=== PATIENT | male | born 1985 | race Caucasian/White ===

== ENCOUNTER 2024-11-14 10:09 | Outpatient (AMB) | payer MEDICAID, SELFPAY ==
--- NOTE | 2024-11-14 10:14 | A.OFFVIS_ITS ---
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 States this was a incidental finding after complaining about abdominal pain. 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 He has a prior history of abdominal discomfort that began about a year ago. He describes periods of abdominal bloating discomfort and generalized pain. Denies any significant food fear. Upon discussion with him he actually reports that his weight is up and to the highest it has ever been at 210 lb. He does not note any severe abdominal pain. Does not even report any full feeling. He denies any nausea or vomiting. And once again he denies any significant weight loss. He had a colonoscopy in the recent past which was negative and no sign of bleed. I do believe he is scheduled for upper endoscopy in the near future. Upon further discussion with him he quit smoking approximately 10 years prior at the age of 29. He is a nondiabetic. Review of Systems Const All systems reviewed & are unremarkable except as noted in HPI and below Reports no additional complaints ENT Reports Normal hearing present Card Denies chest pain, Denies chest pain at rest, Denies chest pain with activity and Denies pedal edema Resp Denies cough GI Denies abdominal pain Musc Denies abnormal gait, Denies muscle cramps and Denies radiating pain into limb Skin/Breast Denies skin ulcer and Denies wounds Neuro Reports Normal hearing present and Denies abnormal gait Psych Reports no additional complaints Physical Exam Const General: cooperative, healthy appearing and comfortable Orientation/consciousness: oriented to person, oriented to place and oriented to time HEENT Head: Yes normal to inspection Neck Neck: Yes normal visual inspection Carotids: no bruits Chest Chest palpation & inspection: normal inspection of the chest Resp Effort & Inspection: normal respiratory effort and able to speak in complete sentences Auscultation: clear to auscultation bilaterally, no crackles, no rales, no rhonchi and no wheezes Cardio Rate: regular rate Rhythm: regular rhythm Heart sounds: S1 normal heart sound present and S2 normal heart sound present Bruits: no carotid bruits Peripheral pulses: Peripheral pulses 2+ throughout GI Inspection: Yes normal to inspection Skin Wounds: no wounds Hair: normal Neuro General: oriented to person, oriented to place and oriented to time Cranial nerves: Yes CN's II-XII intact bilaterally and Yes Normal hearing present Cognition (Neuro): normal cognition Motor exam (neuro): 5/5 motor strength present throughout Extrem Other: venous exam: No significant superficial varicosities or spider telangiectasias, minimal edema General: No clubbing, No cyanosis and No edema Psych Appearance: grossly normal Mental Status: mental status grossly normal Speech and movement: Normal speech and movement present Results Reviewed Results Reviewed: CT scan from 10/07/2024 reports that there is concern of compression between SMA and aorta giving suspicion for SMA syndrome. This was on a CT scan done at [facility]. I was able to review the actual images and disc was provided. Upon my review I do believe this may be a bit of an over read. All 3 mesenteric axis vessels appear to be patent as well. Assessment & Plan Assessment & Plan (1) Chronic mesenteric ischemia: Code(s): K55.1 - Chronic vascular disorders of intestine Category: Medical Plan: In short there is concern of SMA syndrome. I do think he has these symptomatology. And the CT scan does not support this as well. I have taken the liberty of ordering a mesenteric ultrasound just to rule that out. Should that prove to be negative I would be more interested in GIs input regarding irritable bowel versus any other inflammatory conditions. He will follow up with us after testing. Thank you for allowing us to assist in his care. Orders: Orders US abdomen limited Today K55.1 - Chronic vascular disorders of intestine Coding Level of Care Code New Pt Level 4 (02541) Diagnoses Chronic mesenteric ischemia K55.1
== END 2024-11-14 10:43 | disposition home or self-care (01) ==
PROVIDERS: PCP Family Medicine; Visit Provider Surgery Vascular Surgery
DX: K55.1 Chronic vascular disorders of intestine (principal)
CPT/HCPCS: 99204

== ENCOUNTER → 2024-11-14 10:09 | Outpatient (BNVA) | payer OTHER, SELFPAY | PROVIDERS: PCP Family Medicine; Visit Provider Surgery Vascular Surgery | DX: R10.9 Unspecified abdominal pain (principal); K55.1 Chronic vascular disorders of intestine; Z87.891 Personal history of nicotine dependence | CPT/HCPCS: 99202 ==

== ENCOUNTER 2025-01-03 08:10 | Outpatient (REF) | payer OTHER, SELFPAY ==
--- NOTE | ~2025-01-03 | US_ITS ---
EXAMINATION: US SUPERIOR MESENTERIC ARTERY WITH DOPPLER CLINICAL INFORMATION: Chronic vascular disorders of intestinal. COMPARISON: None available. TECHNIQUE: Ultrasound along with color Doppler imaging and spectral analysis was performed of the abdominal aorta, superior mesenteric artery, celiac artery and inferior mesenteric artery. FINDINGS: Abdominal aorta: Normal patency. Peak systolic velocity proximal and distal to the superior mesenteric artery: 135 cm/s and 115 cm/s, respectively. Superior mesenteric artery: Peak systolic velocity in the proximal, mid and distal segments: 169 cm/s, 147 cm/s and 109 cm/s, respectively. Superior mesenteric artery/abdominal aorta angle: 48.3 degrees. Mesenteric aortic ratio: 1.3. Celiac trunk artery: Peak systolic velocity as follow: Inspiration supine: 126 cm/s. Inspiration erect: 95 cm/s. Expiration supine: 196 cm/s. Expiration erect: 109 cm/s. Inferior mesenteric artery: Peak systolic velocity: 73 cm/s. Splenic artery peak systolic velocity 197 cm/s. Hepatic artery peak systolic velocity 134 cm/s. US/US SMA IMPRESSION: SMA: No high degree stenosis by ultrasound criteria. Celiac artery: Borderline during expiration. Inferior mesenteric artery: No high degree stenosis by ultrasound criteria. Electronically signed by: Efren Munoz MD 01/05/2025 12:18 PM [facility]
--- OUTSIDE RECORDS SUMMARY | 2025-01-03 08:25 | XMS_ITS | Data Portability ---
Author Organization [facility], , [facility] Address [address] [place] [address] Care Team Providers Care Medical Device Assembler Name Role Phone OLGA [place] Primary Care Provider Assessment No assessment recorded. Plan of Treatment Reminders Order Date Submit Date Provider Last Modified By Organization Details Last Modified Time Details Appointments None recorded. Lab culture, urine 2024 025 [facility], [address] [place] [address], [address], 5 07:47:20 CT + NG RNA, urine 2024 025 [facility], [address] [place] [address], [address], 5 15:42:01 culture, urine 2024 025 [facility], [address] [place] [address], [address], 5 22:37:50 CT + NG RNA, urine 2024 025 [facility], [address] [place] [address], [address], 5 14:01:59 CBC 2023 024 [facility], [address] [place] [address], [address], 4 10:43:41 CMP, serum or plasma 2023 024 [facility], [address] [place] [address] [place], [address], 4 11:50:15 lipase, serum or plasma 2023 024 [facility], [address] [place] [address], [address], 4 11:50:16 Referral general surgeon referral - Referral needed for Vascular surgeon possible Superior mesenteric artery syndrome - is this something you handle? worse lately, worse after eating, CT 10/07 suggesting SMA syndrome, he is tall and thin and a setup. 2023 ppower Valerio Jacobs, [address] [place] [address] Dr, [address], [place], [address], 5 09:54:01 gastroente rologist referral [address] [facility], [address] [place], [address], 4 14:35:14 Procedures colonoscop y procedure (PROC) 2023 024 [facility], [address] [place], [address], 4 07:20:00 Surgeries None recorded. Imaging None recorded. Medication Orders nitrofuran toin monohydrat e/macrocry stals 100 mg capsule 2024 025 [facility]Pharmacy #2024, [address] [place], [address], 5 15:14:32 loperamide 2 mg tablet 2023 024 [facility]Pharmacy #2024, [address] [place], [address], 4 08:12:00 Patient TargetsNo targets recorded. Patient Instructions Encounter Date Encounter Id Patient Instructions Last Modified By Organization Details Last Modified Time 08/31/2024 [id number] learning about t he low fodmap diet for irritable bowel syndrome (IBS) [email or web address] Not available 08/31/2024 08:28:04 After a discussi on of treatment options, which included consideration of best practices and patient preferences, the? ? ?above treatment plan and objectives were adopted: [email or web address] Not available 08/31/2024 08:36:20 Reason for Referral Global Account Manager Referral for Altered bowel function Referring Physician: Yohan Meneses, [facility], Encounter Date: 08/31/2024 General Surgeon Referral for Superior mesenteric artery syndrome Referral needed for Vascular surgeon possible Superior mesenteric artery syndrome - is this something you handle? worse lately, worse after eating, CT 10/07 suggesting SMA syndrome, he is tall and thin and a setup. Referring Physician: Olga Ma [facility] Medicine, Encounter Date: 10/16/2024 Results Created Date Observation Date Name Description Value Unit Range Abnormal Flag Note LastModifiedBy Organization Detail LastModifiedTime 08/31/2008/31/2024 CBC WBC 4.69 K/? ? ?L 4.23-9 .07 Not Available [address], [address], 08/31/2024 10:43:41 08/31/2008/31/2024 CBC RBC 5.12 M/? ? ?L 4.63-6 .08 Not Available [address], [address], 08/31/2024 10:43:41 08/31/2008/31/2024 CBC HGB 15.7 g/dL 13.7-1 7.5 Not Available [address], [address], 08/31/2024 10:43:41 08/31/2008/31/2024 CBC HCT 46.2 % 40.1-5 1.0 Not Available [address], [address], 08/31/2024 10:43:41 08/31/2008/31/2024 CBC MCV 90.2 fL 79.0-9 2.2 Not Available [address], [address], 08/31/2024 10:43:41 08/31/2008/31/2024 CBC MCH 30.7 pg 25.7-3 2.2 Not Available [address], [address], 08/31/2024 10:43:41 08/31/2008/31/2024 CBC MCHC 34.0 g/dL 32.3-3 6.5 Not Available [address], [address], 08/31/2024 10:43:41 08/31/2008/31/2024 CBC plt 285 K/? ? ?L 163-33 7 Not Available [address], [address], 08/31/2024 10:43:41 08/31/2008/31/2024 CBC MPV 10.9 fL 9.4-12 .4 Not Available [address], [address], 08/31/2024 10:43:41 08/31/2008/31/2024 CBC neut% 52.5 % 34.0-6 7.9 Not Available [address], [address], 08/31/2024 10:43:41 08/31/2008/31/2024 CBC neut# 2.46 1.78-5 .38 Not Available [address], [address], 08/31/2024 10:43:41 08/31/2008/31/2024 CBC lymph % 28.1 % 21.8-5 3.1 Not Available [address], [address], 08/31/2024 10:43:41 08/31/2008/31/2024 CBC lymph # 1.32 K/? ? ?L 1.32-3 .57 Not Available [address], [address], 08/31/2024 10:43:41 08/31/2008/31/2024 CBC mono% 12.4 % 5.3-12 .2 high Not Available [address], [address], 08/31/2024 10:43:41 08/31/2008/31/2024 CBC mono# 0.58 0.30-0 .82 Not Available [address], [address], 08/31/2024 10:43:41 08/31/2008/31/2024 CBC eo% 5.5 % 0.8-7. 0 Not Available [address], [address], 08/31/2024 10:43:41 08/31/2008/31/2024 CBC eo# 0.26 0.04-0 .54 Not Available [address], [address], 08/31/2024 10:43:41 08/31/2008/31/2024 CBC baso% 1.3 % 0.2-1. 2 high Not Available [address], [address], 08/31/2024 10:43:41 08/31/2008/31/2024 CBC baso# 0.06 0.00-0 .08 Not Available [address], [address], 08/31/2024 10:43:41 08/31/2008/31/2024 CBC RDW-CV 11.6 % 11.6-1 4.4 Not Available [address], [address], 08/31/2024 10:43:41 08/31/20 24 08/31/2024 CBC Ig% 0.200 % 0.000- 1.500 Ig % >0.5 Indic ates possi ble Left Shift Not Available [address], [address], 08/31/2024 10:43:41 08/31/2008/31/2024 CBC Ig# 0.010 0.000- 0.093 Not Available [address], [address], 08/31/2024 10:43:41 08/31/2008/31/2024 CBC NRBC% 0.0 % 0.0-0. 2 Not Available [address], [address], 08/31/2024 10:43:41 08/31/20 24 08/31/2024 CBC NRBC# 0.000 0.000- 0.012 Not Available [address], [address], 08/31/2024 10:43:41 08/31/2008/31/2024 COMP. METAB OLIC PANEL glucose 88 mg/dL 70-100 Not Available [address], [address], 08/31/2024 11:50:15 08/31/2008/31/2024 COMP. METAB OLIC PANEL BUN 14 mg/dL 7-18 Not Available [address], [address], 08/31/2024 11:50:15 08/31/2008/31/2024 COMP. METAB OLIC PANEL creatinine 1.1 mg/dL 0.8-1. 3 Not Available [address], [address], 08/31/2024 11:50:15 08/31/2008/31/2024 COMP. METAB OLIC PANEL B/C 12.7 ratio Not Available [address], [address], 08/31/2024 11:50:15 08/31/20 24 08/31/2024 COMP. METAB OLIC PANEL GFR >=60ML /MIN mL/mi n normal >=60m L/min - Mira l or midly reduc ed <60mL /min- Decre ased kidne y funct ion <15mL /min - Kidne y failu re [facility] calcu lates estim ated Glome rular Filtr ation Rate (eGFR ) using the Chron ic Kidne y Disea se Epide miolo gy Colla borat ion (CKD- EPI) Equat ion (Bola harding et. al 2020) as recom guillermo d by the Natio nal Kidne y Found ation . eGFR is based on age, serum creat inine , and sex. CKD-E PI does not calcu late eGFR by race, does not apply to child minnie (age <18 years ), and shoul d not be used in pregn tommie. Not Available [address], [address], 08/31/2024 11:50:15 08/31/20 24 08/31/2024 COMP. METAB OLIC PANEL sodium 141 mmol/ L 136-14 5 Not Available [address], [address], 08/31/2024 11:50:15 08/31/20 24 08/31/2024 COMP. METAB OLIC PANEL potassium 4.8 mmol/ L 3.5-5. 1 Not Available [address], [address], 08/31/2024 11:50:15 08/31/20 24 08/31/2024 COMP. METAB OLIC PANEL chloride 101 mmol/ L 96-107 Not Available [address], [address], 08/31/2024 11:50:15 08/31/20 24 08/31/2024 COMP. METAB OLIC PANEL anion gap 9.2 5.0-15 .0 Not Available [address], [address], 08/31/2024 11:50:15 08/31/20 24 08/31/2024 COMP. METAB OLIC PANEL CO2 31 mmol/ L 21-32 Not Available [address], [address], 08/31/2024 11:50:15 08/31/20 24 08/31/2024 COMP. METAB OLIC PANEL calcium 9.5 mg/dL 8.5-10 .3 Not Available [address], [address], 08/31/2024 11:50:15 08/31/20 24 08/31/2024 COMP. METAB OLIC PANEL total protein 7.4 g/dL 6.4-8. 2 Not Available [address], [address], 08/31/2024 11:50:15 08/31/20 24 08/31/2024 COMP. METAB OLIC PANEL albumin 4.3 g/dL 3.4-5. 0 Not Available [address], [address], 08/31/2024 11:50:15 08/31/20 24 08/31/2024 COMP. METAB OLIC PANEL globulin 3.1 g/dL Not Available [address], [address], 08/31/2024 11:50:15 08/31/20 24 08/31/2024 COMP. METAB OLIC PANEL A/G 1.4 ratio 0.8-2. 0 Not Available [address], [address], 08/31/2024 11:50:15 08/31/20 24 08/31/2024 COMP. METAB OLIC PANEL total bilirubin 0.50 mg/dL 0.00-1 .00 Not Available [address], [address], 08/31/2024 11:50:15 08/31/20 24 08/31/2024 COMP. METAB OLIC PANEL AST 13 U/L 0-37 Not Available [address], [address], 08/31/2024 11:50:15 08/31/20 24 08/31/2024 COMP. METAB OLIC PANEL ALT 27 U/L 6-63 Not Available [address], [address], 08/31/2024 11:50:15 08/31/20 24 08/31/2024 COMP. METAB OLIC PANEL alk. phos. 71 U/L 50-136 Not Available [address], [address], 08/31/2024 11:50:15 08/31/20 24 08/31/2024 LIPAS E lipase 38 U/L 16-77 Not Available [address], [address], 08/31/2024 11:50:16 11/23/19 25 11/24/2024 CHLAM YDIA/ GC, URINE KATIE N. gonorrhoeae GC NEG negati ve normal Not Available [address], [address], 11/24/2024 14:01:59 11/23/19 25 11/24/2024 CHLAM YDIA/ GC, URINE KATIE C. trachomatis CT NEG negati ve normal Not Available [address], [address], 11/24/2024 14:01:59 11/23/19 25 11/24/2024 CULTU RE, URINE , ROUTI NE culture, urine, routine CULTU RE, URINE , ROUTI NE Micro Numbe r: [id number] Test Statu s: Final Speci men Sourc e: Urine Speci men Quali ty: Adequ ate Resul t: No Growt h Not Available [facility] [address] [place], [place], [address], 11/24/2024 22:37:50 06/27/20 24 06/27/2024 pulmo nary funct ion test* No observ ation record ed. [facility] [address], [address], 07/04/2024 13:16:04 10/11/20 24 10/07/2024 CT, abdom en + pelvi s, w/ contr ast No observ ation record ed. [address], [address], 10/20/2024 22:07:36 Result Notes None recorded. Problems Name Problem SNOMED Code Status Onset Date Resolution Date Notes Provider Name and Address Organization Details Recorded Time Fracture of ankle 06090546 Completed 09/20/2013 Not Available [facility] 3 02:04:28 Nervous system symptoms Completed 09/20/2013 Not Available [facility] 3 02:03:49 Cough 84950444 Completed 200809/20/2013 Not Available [facility] 3 02:01:10 Wheezing 01985829 Completed 09/20/2013 [facility] Available [facility] 3 02:04:09 Sprain of ankle and/or foot 076571183 Completed 09/20/2013 Not Available [facility] 3 02:04:13 Urinary tract infectiou s disease 35365048 Completed 09/20/2013 Not Available [facility] 3 02:01:59 Anxiety state 266721118 Active 2008 Diamond trevizo [place] [facility] 5 10:57:02 Influenza 0545401 Completed 09/20/2013 Not Available [facility] 3 02:02:22 Acute pharyngit is 515637419 Completed 09/20/2013 Not Available [facility] 3 02:01:18 Joint pain in ankle and foot Completed 09/20/2013 Not Available [facility] 3 02:01:27 Acute upper respirato ry infection 19142140 Completed 09/20/2013 Not Available [facility] 3 02:02:18 On examinati on - a rash Completed 09/20/2013 Not Available [facility] 3 02:00:50 Herpes zoster 5291448 Completed 09/20/2013 Not Available [facility] 3 02:02:58 Dysuria 85959682 Completed 09/20/2013 Not Available [facility] 3 02:02:01 Urethriti s 55306774 Completed 200809/20/2013 Not Available [facility] 3 02:04:06 Acute bronchiti s 51999542 Completed 09/20/2013 Not Available [facility] 3 02:01:37 History of heroin abuse 46172732876 9105 Active 2018 Betty Lujan PA-C [address] [place] [address], [address] , [facility] 9 11:49:56 Obstructi ve sleep apnea syndrome 97663830 Active 2023 Meagan Thorpe RN BSN [facility], [facility] 4 14:48:02 Bronchiec tasis 21420549 Active 2023 per pulm note 05/05/24 Meagan Thorpe RN BSN [facility], [facility] 4 17:06:12 Problem Notes None recorded. Procedures Surgical History Date Name Laterality Status Provider Name and Address Organization Details Recorded Time 1 Bhumika - Upper Endoscopy completed Patrick Bai MD [address] [place] [address], [address], [facility] 06/25/2021 11:31:42 8 POC Urinalysis Testing completed Jaymie William [facility] 12/29/2017 13:39:52 8 Refraction completed [facility] 12/03/2017 13:18:35 5 Refraction completed [facility] 10/11/2015 10:53:53 3 Treatment and Advice completed Paty Ortiz Mph, LPT [address] [place], [address], [facility] 05/09/2013 13:55:04 1 Smoking cessation counseling completed Olga Ma MD [address] [place], [address], [facility] 04/29/2011 14:35:28 9 Nebulizer Tx completed Lavern Patel LPN [facility] 07/04/2009 12:12:40 9 Treatment and Advice completed Regine Byrd, PT [address] [place], [address], [facility] 06/27/2009 15:09:58 Imaging Results Imaging Date Name Status LastModified by Organiz [facility] Details LastModified Time 06/27/2024 pulmonary function test* completed [facility] [address] [place] [address], [address], 07/04/2024 13:16:04 10/07/2024 CT, abdomen + pelvis, w/ contrast completed [address], [address], 10/20/2024 22:07:36 Procedure Notes None recorded. Medical Equipment None Reported. Allergies No known drug allergies Medications Name Sig Start Date Stop Date Status Note LastModified by Organization Details LastModified Time cyclobenz aprine 10 mg tablet Take 1 tablet twice a day by oral route for 5 days. 12/03 completed Not Available Not Available Not Available Neurontin 300 mg capsule Take 1 capsule 3 times a day by oral route for 14 days. 10/17 completed Not Available Not Available Not Available albuterol sulfate 2.5 mg/3 mL (0.083 %) solution for nebulizat ion Inhale 3 mL 3 times a day by nebuliza tion route as needed. 10/16 completed per pulm note 05/05/24 Not Available Not Available Not Available loperamid e 2 mg capsule TAKE 2 CAPSULES BY MOUTH ONCE, THEN 1 CAPSULE AFTER EACH LOOSE STOOL 10/16 completed Not Available Not Available Not Available ibuprofen 800 mg tablet Take 1 tablet 3 times a day by oral route for 14 days. 09/26 completed Not Available Not Available Not Available ofloxacin 0.3 % eye drops 10/14 completed Not Available Not Available Not Available tizanidin e 4 mg tablet Take 1 tablet every 8 hours by oral route as needed for 4 days. 2014 active Not Available Not Available Not Avai lable valacyclo vir 1 gram tablet Take 1 tablet every 12 hours by oral route for 7 days. 09/26 completed Not Available Not Available Not Available Keflex 500 mg capsule Take 1 capsule 4 times a day by oral route for 10 days. 07/31 completed Not Available Not Available Not Available Nicoderm CQ 21 mg/24 hr daily transderm al patch Apply 1 patch every day by transder mal route for 14 days. 08/12 completed Not Available Not Available Not Available prednison e 20 mg tablet TAKE 3 TABLETS BY MOUTH DAILY FOR 3 DAYS 08/17 completed Not Available Not Available Not Available Tubersol 5 tub. unit/0.1 mL intraderm al injection solution 2009 active Not Available Not Available Not Avai lable clonazepa m 0.5 mg tablet TAKE 1 TABLET BY MOUTH EVERY DAY active Not Available Not Available No t Available loperamid e 2 mg tablet TAKE 4MG BY MOUTH ONCE, THEN 2MG BY MOUTH AFTER EACH LOOSE STOOL 10/16 completed Not Available Not Available Not Available moxifloxa cordell 400 mg tablet TAKE 1 TABLET BY MOUTH EVERY DAY 05/24 completed Not Available Not Available Not Available Diflucan 150 mg tablet Take 1 tablet every day by oral route for 1 day. 10/21 completed Not Available Not Available Not Available Wellbutri n SR 150 mg tablet, 12 hr sustained -release start 1 a day for 3 days then one twice a day; stop smoking after one week. can stop meds at 3 or 6 months 2011 active Not Available Not Available Not Avai lable penicilli n V potassium 500 mg tablet Take 1 tablet every 8 hours by oral route for 10 days. 01/03 completed Not Available Not Available Not Available ciproflox acin 250 mg tablet Take 1 tablet every 12 hours by oral route for 28 days. 02/05 completed Not Available Not Available Not Available omeprazol e 40 mg capsule,d elayed release TK 1 C PO QD 01/20 completed Not taking 04/07/21 Not Available Not Available Not Available doxycycli ne monohydra te 100 mg tablet Take 1 tablet twice a day by oral route for 10 days. 07/14 completed Not Available Not Available Not Available tramadol 50 mg tablet Take 1 tablet every 6 hours by oral route for 4 days. 07/08 completed Not Available Not Available Not Available triamcino lone acetonide 0.1 % topical cream APPLY A THIN LAYER TO THE AFFECTED AREA(S) BY TOPICAL ROUTE 2 TIMES PER DAY 03/07 completed Not Available Not Available Not Available amoxicill in 500 mg tablet 1 tablet twice a day x 10 days 2012 active Not Available Not Available Not Avai lable hydrocort isone acetate 25 mg rectal supposito ry unwrap and insert 1 supposit ory rectally twice a day 02/06 completed Not Available Not Available Not Available amoxicill in 875 mg tablet Take 1 tablet every 12 hours by oral route for 5 days. 2014 active Not Available Not Available Not Avai lable prednisol one acetate 1 % eye drops,rayna [facility] 06/28 completed Not Available Not Available Not Available meclizine 25 mg tablet Take 1 tablet 3 times a day by oral route as needed for 10 days. 05/12 completed Not Available Not Available Not Available Nicoderm CQ 14 mg/24 hr daily transderm al patch Apply 1 patch every day by transder mal route for 14 days. 08/12 completed Not Available Not Available Not Available benzonata te 100 mg capsule take 1 capsule by mouth three times a day if needed 06/28 completed Not Available Not Available Not Available doxycycli ne monohydra te 100 mg capsule TAKE 1 CAPSULE BY MOUTH TWICE A DAY FOR 10 DAYS 01/20 completed Not Available Not Available Not Available erythromy cordell 5 mg/gram (0.5 %) eye ointment APPLY 1 A SMALL AMOUNT INTO LEFT EYE AT BEDTIME 01/09 completed Not Available Not Available Not Available oseltamiv ir 75 mg capsule Take 1 capsule twice a day by oral route for 5 days. 03/07 completed complted the course 01/02/20 Not Available Not Available Not Available omeprazol e 20 mg capsule,d elayed release TAKE 1 CAPSULE EVERY DAY BY ORAL ROUTE DIRECTED FOR 30 DAYS. 01/20 completed Not Available Not Available Not Available hydroxyzi ne HCl 25 mg tablet Take 1 tablet 4 times a day by oral route for 30 days. 2008 active Not Available Not Available Not Avai lable Culturell e 10 billion cell capsule Take 1 capsule twice a day by oral route for 32 days. 02/09 completed Not Available Not Available Not Available bisacodyl 5 mg tablet,de layed release 11/23 completed Not Available Not Available Not Available gabapenti n 100 mg capsule Take 1 cap po mid-day x3days, then 2 tabs po mid-day x3days, then 3 tabs po mid-day. 2012 active Not Available Not Available Not Avai lable epinephri ne 0.3 mg/0.3 mL injection , auto-inje ctor Take 1 auto as needed by injectio n route. 2017 active Not Available Not Available Not Avai lable ibuprofen 600 mg tablet TAKE 1 TABLET BY MOUTH 4 TIMES A DAY NEEDED FOR PAIN FOR 10 DAYS active Not Available Not Available No t Available methylpre dnisolone 4 mg tablets in a dose pack TAKE DIRECTED 05/24 completed Not Available Not Available Not Available BuSpar 15 mg tablet Take 1 tablet twice a day by oral route for 30 days. 11/09 completed Not Available Not Available Not Available clotrimaz ole 1 % topical cream Apply 1 applicat ion twice a day by topical route for 7 days. 04/04 completed Not Available Not Available Not Available amoxicill in 875 mg-potass ium clavulana te 125 mg tablet TAKE 1 TABLET BY MOUTH TWICE A DAY FOR 7 DAYS 05/24 completed Not Available Not Available Not Available nicotine 7 mg/24 hr daily transderm al patch Apply 1 patch every day by transder mal route for 14 days. 2013 active Not Available Not Available Not Avai lable Ventolin HFA 90 mcg/actua tion aerosol inhaler INHALE 2 PUFFS INTO THE LUNGS EVERY 6 HOURS NEEDED FOR WHEEZING OR SHORTNES S OF BREATH/D YSPNEA active Not Available Not Available No t Available tobramyci n 0.3 %-dexamet hasone 0.1 % eye drops,rayna pension INSTILL 1 DROP INTO BOTH EYES 4 TIMES DAILY FOR 2 WEEKS 06/28 completed Not Available Not Available Not Available Tessalon Perle 100 mg capsule Take 1 capsule 3 times a day by oral route as needed for 14 days. 07/18 completed Not Available Not Available Not Available Suboxone 8 mg-2 mg sublingua l tablet Place 8 mg every day by sublingu al route. 05/30 completed 12/29/19 18 3mg per day/as Not Available Not Available Not Available cyclobenz aprine 5 mg tablet Take 1 tablet 3 times a day by oral route for 7 days. 10/04 completed no longer taking Not Available Not Available Not Available nitrofura ntoin monohydra te/macroc rystals 100 mg capsule TAKE 1 CAPSULE BY MOUTH EVERY 12 HOURS FOR 7 DAYS 12/28 completed Not Available Not Available Not Available Lyrica 100 mg capsule Take 1 capsule every day by oral route. active Not Available Not Available No t Available gabapenti n 2012 active 300mg, take by mouth 3 times daily Not Available Not Available Not Available Chantix Starting Month Woo 0.5 mg (11)-1 mg (42) tablets in dose pack 1 0.5 mg tab PO days 1-3; 1 tab 0.5 mg twice a day for days 4-7; 1 tab 1 mg BID days 8 on 2010 active nausea Not Available Not Available Not Avai lable Chantix Continuin g Month Woo 1 mg tablet Take 1 tablet twice a day by oral route for 30 days. 2010 active nausea Not Available Not Available Not Avai lable sodium chloride 7 % for nebulizat ion TAKE 4 ML BY NEBULIZA TION 2 (TWO) TIMES A DAY. 10/16 completed Not Available Not Available Not Available GaviLyte- G 236 gram-22.7 4 gram-6.74 gram-5.86 gram oral solution 11/23 completed Not Available Not Available Not Available buprenorp rodney 2 mg-naloxo ne 0.5 mg sublingua l film PLACE 1/2 FILM UNDER TONGUE ONCE A DAY 01/20 completed Not Available Not Available Not Available Flonase Allergy Relief 50 mcg/actua tion nasal spray,rayna pension [place] 1 spray every day by intranas al route. 06/14 completed Not Available Not Available Not Available Wixela Inhub 250 mcg-50 mcg/dose powder for inhalatio n TAKE 1 PUFF BY MOUTH TWICE A DAY 10/16 completed Not Available Not Available Not Available Vitals Date Recorded Body height Body mass index (BMI) Body weight Oxygen saturation Oxygen saturation in Arterial blood by Pulse oximetry Heart rate Systolic blood pressure Diastolic blood pressure Provider Name and Address Organization Details Last Updated DateTime 4 198.12 cm 21.7 kg/m2 23693.3 7 g 99 % 99 % 92 /min 112 mm[Hg] 62 mm[Hg] Jessica Olvera [facility] 4 09:36:22 Date Recorded Body height Oxygen saturation Oxygen saturation in Arterial blood by Pulse oximetry Heart rate Body mass index (BMI) Body weight Systolic blood pressure Diastolic blood pressure Provider Name and Address Organization Details Last Updated DateTime 4 198.12 cm 97 % 97 % 68 /min 24.2 kg/m2 97192.8 1 g 110 mm[Hg] 66 mm[Hg] Bartolo Hinojosa [facility] 4 08:08:46 Date Recorded Body height Body mass index (BMI) Body weight Heart rate Oxygen saturation Oxygen saturation in Arterial blood by Pulse oximetry Systolic blood pressure Diastolic blood pressure Provider Name and Address Organization Details Last Updated DateTime 4 198.12 cm 24.5 kg/m2 98467.5 8 g 71 /min 98 % 98 % 100 mm[Hg] 62 mm[Hg] Jessica Olvera [facility] 4 08:10:51 Date Recorded Body height Heart rate Systolic blood pressure Diastolic blood pressure Provider Name and Address Organization Details Last Updated DateTime 11/23/2024 198.12 cm 76 /min 135 mm[Hg] 60 mm[Hg] Kristen [facility] 11/23/2024 13:40:08 Date Recorded Body height Heart rate Body mass index (BMI) Body weight Systolic blood pressure Diastolic blood pressure Provider Name and Address Organization Details Last Updated DateTime 198.12 cm 76 /min 23.5 kg/m2 77044.2 5 g 130 mm[Hg] 68 mm[Hg] Kristen [facility] 15:12:27 Social History Question Answer Notes LastModified by Organizat ion Details LastModified Time Tobacco Smoking Status Former Smoker quit 09/10/2012 smoked 10 yrs Not Available [facility] 03/26/2011 02:08:12 Do You Have An Advance Directive? No Form Given [email or web address] Information not available 10/10/2009 What Is Your Level Of Alcohol Consumption? Occasional Information not available 01/24/2024 What Is Your Level Of Caffeine Consumption? Occasional Information not available 05/30/2018 How Much Tobacco Do You Chew? None Information not available 09/03/2016 What Type Of Diet Are You Following? REGULAR Information not available 05/30/2018 Which Illicit Or Recreational Drugs Have You Used? None Stopped Heroin 2007; Started 2002 Information not available 06/25/2009 Do You Or Have You Ever Used E-cigarettes Or Vape? 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 11-15yearssinc elastcigarette Information not available 01/10/2024 How Many Days In The Past Year Have You Had A Heavy Drinking Consumption (4+ Female, 5+ Male)? 0 Information not available 05/30/2018 Are There Any Guns Present In Your Home? No Information not available 05/30/2018 Live Alone Or With Others? With Others [email or web address] Information not available 09/17/2011 Patient Has Health Care Proxy Signed And In Chart No HCP NOT VALID-not Dated By Pt [email or web address] Information not available 09/17/2011 Marital Status Domestic Partner GF - Stays At Home [email or web address] Information not available 09/13/2015 Mosquito Repellent Used Routinely Yes Information not available 05/30/2018 What Was The Date Of Your Most Recent Tobacco Screening? 11/23/2024 [email or web address] Information not available 11/23/2024 How Many Children Do You Have? 2 Virginie Girl January 2011; Stef Boy March 2013; Son Born Oct 2010 Lives In [place] With Mother Information not available 04/29/2011 Are There Any Occupational Health Risks Where You Work? None Information not available 05/30/2018 What Is Your Current Pack Years? 10-19packyears Information not available 01/10/2024 Seat Belts Used Routinely Yes [email or web address] Information not available 09/17/2011 Are You Sexually Active? No [email or web address] Information not available 09/17/2011 Smoke Alarm In Home Yes [email or web address] Information not available 09/17/2011 At What Age Did You Start Smoking Tobacco? 14 [email or web address] Information not available 09/17/2011 Do You Or Have You Ever Used Smokeless Tobacco? Never Used Smokeless Tobacco Information not available 03/07/2020 How Much Tobacco Do You Smoke? No Information not available 03/07/2020 What Types Of Sporting Activities Do You Participate In? None Information not available 05/30/2018 General Stress Level High Information not available 05/30/2018 Do You Use Sunscreen Routinely? Yes Information not available 05/30/2018 How Many Years Have You Smoked Tobacco? 10 Information not available 03/07/2020 Sex: Male Functional Status None recorded. Mental Status None recorded. Family History Relationship Description Onset Age of this Age Resolved Age Notes LastModified by Organization Details LastModified Time Mother Problem health status unknow n jerskine Not available 11/22/2014 10:43:04 Paternal Aunt Malignant tumor of colon 50 previo usly record ed as Cancer - Colon jerskine Not available 11/22/2014 10:43:04 Paternal Aunt Diabetes mellitus previo usly record ed as Diabet es jerskine Not available 11/22/2014 10:43:04 Maternal Grandmother Malignant tumor of lung previo usly record ed as Cancer - Lung jerskine Not available 11/22/2014 10:43:04 Father Hypertensive disorder previo usly record ed as Hypert ension jerskine Not available 11/22/2014 10:43:04 Father Anemia esopha geal varice s jerskine Not available 11/22/2014 10:43:04 Father Hyperlipidem ia jerskine Not available 2014 10:43:04 Father Alcoholism jerskine Not availab le 11/22/2014 10:43:04 Sister Malignant neoplasm of skin previo usly record ed as Cancer - Skin jerskine Not available 11/22/2014 10:43:04 Paternal Grandfather Heart disease jerskine Not available 2014 10:43:04 Notes:no early CAD; no breas t cancer in family; no prostate cancer; Dad: Taj's esophagus Medical History No medical history recorded. Immunizations Vaccine Type Date Status Note Provider Nam e and Address Organization Details Recorded Time Influenza, split virus, trivalent, preservative 1 completed Not Available [facility] 11/18/2019 02:18:12 pneumococcal polysaccharide PPV23 1 completed Not Available [facility] 11/18/2019 02:14:32 Tdap 3 completed Not Available [facility] 11/18/2019 02:31:15 Influenza, split virus, trivalent, preservative 0 completed Not Available [facility] 11/18/2019 02:29:16 Novel [id number] 0 completed Not Available [facility] 11/18/2019 02:17:43 Influenza, split virus, quadrivalent, PF 6 completed Not Available [facility] 11/18/2019 02:21:07 influenza, unspecified formulation 4 completed Radha Lee [facility] 09/17/2014 16:57:42 Influenza, split virus, quadrivalent, PF 7 completed Not Available [facility] 11/18/2019 02:33:35 Influenza, split virus, quadrivalent, PF 8 completed Not Available [facility] 11/18/2019 02:33:02 Tdap 0 completed Not Available [facility] 11/18/2019 02:26:04 Tdap 2 completed Patrick Glass [facility] 01/10/2024 11:46:18 Past Encounters Encounter ID Performer Location Encounter Start Date Encounter Closed Date Diagnosis/Indication Diagnosis SNOMED-CT Code Diagnosis ICD10 Code Diagnosis Note [id number] [facility], [address]ICE [address] [place] [address] 06/25/2009 14:28:05 06/26/2009 15:05:27 [id number] Physical Therapy, [address] [address] 06/27/2009 14:32:53 06/28/2009 13:36:36 [id number] [facility], [address] [place] [address] 07/04/2009 11:04:55 07/10/2009 12:25:26 [id number] Radiology , [facility] [address] [place] [address] 07/04/2009 12:24:33 07/10/2009 10:45:03 [id number] [facility], [address] [place] [address] 08/20/2009 15:40:16 08/21/2009 15:16:46 [id number] LAB - [facility] [address] [place] [address] 06/25/2009 15:24:33 06/25/2009 15:24:40 [id number] Radiology , [address] [address] 07/04/2009 00:00:00 08/29/2009 02:00:52 [id number] [facility], [address] [place] [address] 09/12/2009 11:13:57 09/13/2009 14:23:03 [id number] [facility], [address] [place] [address] 10/10/2009 14:50:57 10/10/2009 15:44:45 [id number] [facility], [address] [place] [address] 11/06/2009 15:13:00 11/08/2009 15:42:00 [id number] FP, [facility], [address] [place] [address] 11/07/2009 10:11:35 11/08/2009 15:57:51 [id number] Radiology , [facility] [address] [place] [address] 11/07/2009 11:29:26 11/07/2009 16:30:53 [id number] FP, [facility], [address] [place] [address] 11/11/2009 14:02:56 11/13/2009 12:25:41 [id number] FP, [facility], [address] [place] [address] 11/13/2009 14:30:21 11/15/2009 09:04:06 [id number] FP, [facility], [address] [place] [address] 12/04/2009 10:55:28 12/06/2009 12:21:48 [id number] FP, C, OFFICE [address] [facility] [place] [address] 12/24/2009 09:05:24 12/26/2009 15:16:46 [id number] FP, [facility], [address] [place] [address] 02/05/2010 15:08:56 02/06/2010 11:59:20 [id number] FP, [facility], [address] [place] [address] 07/04/2010 15:07:34 07/10/2010 09:18:46 [id number] FP, [facility], [address] [place] [address] 07/08/2010 11:08:08 07/09/2010 14:56:35 [id number] FP, [facility], OFFICE [address] [facility] [place] [address] 10/09/2010 10:10:12 10/14/2010 08:27:15 [id number] FP, [facility], [address] [place] [address] 11/17/2010 15:46:48 11/20/2010 09:26:01 [id number] FP, C, OFF[address] [facility] [place] [address] 12/09/2010 09:04:40 12/12/2010 14:59:35 [id number] , [facility], [address] [place] [address] 12/10/2010 13:36:19 12/12/2010 12:16:31 [id number] , [facility], [address] [place] [address] 01/08/2011 10:12:59 01/12/2011 15:00:31 [id number] , [facility], [address] [place] [address] 04/09/2011 10:23:04 04/10/2011 11:12:44 [id number] , [facility], OFFICE [address] [place] [address] 04/17/2011 09:43:48 04/17/2011 11:02:21 [id number] Linda Paredes MA , [facility], [address] [place] [address] 04/29/2011 13:53:49 05/01/2011 11:19:49 [id number] , [facility], [address] [place] [address] 07/29/2011 10:40:03 07/29/2011 11:27:01 [id number] Linda Paredes MA , [facility], [address] [place] [address] 06/20/2012 10:55:03 06/20/2012 11:37:19 [id number] TIMBO Yoder , [facility], [address] [place] [address] 07/21/2012 09:12:19 07/21/2012 09:36:10 [id number] Olga Ma MD , [facility], [address] [place] [address] 09/19/2012 14:44:00 09/19/2012 15:12:36 [id number] SANTHOSH Melo , [facility], [address] [place] [address] 10/20/2012 15:12:54 10/21/2012 12:38:06 [id number] Olga Ma MD , [facility], [address] [place] [address] 12/20/2012 14:28:21 12/20/2012 15:45:30 [id number] Priscilla Mendes , [facility], [address] [place] [address] 03/17/2013 14:48:43 03/20/2013 11:12:42 [id number] Marcelo Trevino GEOGRAPHY DEPARTMENT CHAIR , [facility], OFFICE [address] [place] [address] 03/29/2013 10:34:09 03/29/2013 14:27:58 [id number] Marcelo Trevino [facility], [facility], [address] [place] [address] 05/02/2013 15:13:46 05/03/2013 14:34:02 [id number] Paty Ortiz Mph, LPT Physical Therapy, [address] [address] 05/09/2013 12:53:07 05/09/2013 14:10:04 [id number] Meme Granados , [facility], OFFICE [address] [place] [address] 08/11/2013 12:12:02 08/11/2013 13:57:55 Acute pharyngitis 183859751 Pharyngiti s: concern for GAS pharyngiti s with the following Centor Criteria ( ) Fever (but taking ibuprofen) (x ) tonsillar exudate ( ) tender LAD -- nontender (x ) no cough -Rapid Group A Strep test now negative; therefore send culture ibuprofen, rest, hydration and salt water gargles encouraged Treatment: amoxicilli n 500mg twice a day x 10 days as patient with 2 small children at home and 2/4 centor criteria [id number] Dejah Doe NP , [facility], OFFICE [address] [place] [address] 01/19/2014 15:27:44 01/19/2014 16:18:31 Acute upper respiratory infection 28073400 Educated patient that URI is a viral illness of the upper airways. It is not bacterial and does not benefit from antibiotic s. Average duration of URI is 7-10 days but in a recent trial, treatment at 7-10 days of illness with antibiotic s, intranasal steroids, or placebo did not alter natural history at 3 weeks. Recommende d symptomati c treatments including NSAIDS, semi-uprig ht sleep position, antihistam trent at HS, limited course of nasal sympathomi metics and/or cough syrups, and nasal saline rinses with soft squeeze bottle or Neti pot. Return for fevers > 101 for 3 days, worsening sinus pain, or failure to resolve in 2-4 weeks. [id number] [facility], OFFICE [address] [place] [address] 06/28/2014 16:13:14 07/03/2014 11:42:38 Plantar fasciitis 955769434 Discussed. Literature given with stretching exercises to start doing daily. Enc. ice, comf. footwear, rest, NSAIDs prn. Referred to [employer] for new inserts for shoes. Pt to f/u here if not improving or sx worsening and would consider PT. Pt comf. with this plan. [id number] Bia Fagan Podiatry, [facility] [address] [place] [address] 11/22/2014 09:57:12 11/22/2014 13:09:11 Plantar fasciitis 911261168 [id number] Nanda Jaime [facility], [address] [place] [address] 04/01/2015 16:56:40 04/01/2015 17:31:28 Backache 430332818 low back strain, non radiating, reviewed RICE,suppo rtive care no truama no need for imaging. 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 check for hereditary issues, refer to PT, f/u 6 weeks [id number] Osiris Locke , [facility], [address] [place] [address] 09/13/2015 16:31:58 09/19/2015 07:59:28 Acute pharyngitis 531560615 J02.9 Diarrhea 51759472 R19.7 Hematochezia 518681776 92.1 [id number] Victor Manuel Claudio, OD Eye Care, [facility] [address] [place] [address] 10/11/2015 10:32:30 10/11/2015 11:11:33 Astigmatism 83375877 H52.889 [id number] Alicia Bear NP FP, [facility], [address] [place] [address] 11/02/2015 11:28:45 11/02/2015 11:56:36 Acute upper respiratory infection 02713896 J06.9 Laryngitis 18453935 J04. 0 [id number] Mary MALONEY, [facility], [address] [place] [address] 01/02/2016 12:13:47 01/08/2016 14:07:48 Cough 89206492 R05 bronchitis - otc cough med. rest, call if gets worse [id number] Jojo Monsalve NP FP, [facility], [address] [place] [address] 09/03/2016 14:18:46 09/08/2016 10:05:26 Active or passive immunization 746476140 Z23 Contusion of scrotum 232 92691 S30.22XA Reviewed u/s report from the ER. Dr. Beauchamp in to evaluate pt as well since pt was very concerned about his sx. Reassured. This appears to be a bruise - nothing more. U/S very reassuring . No s/s infection. No need for urology referral (incidenta l finding of small hydrocele on the left that pt has most likely had for yrs). F/u for increased pain/swell ing or other concerns. Should expect this tender discolored area to gradually resolve over the next few weeks. [id number] Dejah Doe NP FP, [facility], [address] [place] [address] 03/12/2017 10:40:47 03/12/2017 11:24:22 Acute upper respiratory infection 52002453 J06.9 Educated patient that URI is a viral illness of the upper airways. It is not bacterial and does not benefit from antibiotic s. Average duration of URI is 7-10 days but in a recent trial, treatment at 7-10 days of illness with antibiotic s, intranasal steroids, or placebo did not alter natural history at 3 weeks. Recommende d symptomati c treatments including NSAIDS, semi-uprig ht sleep position, antihistam trent at HS, limited course of nasal sympathomi metics and/or cough syrups, and nasal saline rinses with soft squeeze bottle or Neti pot. Return for fevers > 101 for 3 days, worsening sinus pain, or failure to resolve in 2-4 weeks. [id number] Dillon Gordon MD , [facility], [address] [place] [address] 06/14/2017 11:43:02 06/14/2017 12:15:28 Low back strain 073666974 S39.012A [id number] Kristen Santos RN BSN , [facility], [address] [place] [address] 09/16/2017 09:36:54 09/16/2017 10:03:15 Active or passive immunization 072098228 Z23 [id number] Victor Manuel Claudio OD Eye Care, [facility] [address] [place] [address] 12/03/2017 12:59:36 12/03/2017 13:48:06 Myopia 21572504 H52.13 Regular astigmatism 6890 5002 H52.763 [id number] TIMBO Delvalle-MARLO , [facility], [address] [place] [address] 12/29/2017 13:33:22 12/29/2017 14:02:11 Urinary tract infectious disease 65528610 N39.0 pt notes frequency, reassuring UA, will await culture results rather that treat.r.ou t g/c [id number] Olga Ma MD , [facility], [address] [place] [address] 05/30/2018 14:03:02 05/30/2018 14:56:09 Adult health examination 541986078 Z00.00 see Risk Assessment and Lifestyle Change Counseling section above; Td due 2022 Counseling 533079613 Z71 .9 Depression screening 171 176905 Z13.89 depression screening tool administer ed, entered into emr, scored and discussed, time greater than 7.5 minutes History of heroin abuse [id number] 68953 F11.11 clean since 2007; never any issues with alcohol [id number] TIMBO Delvalle-MARLO , [facility], [address] [place] [address] 08/17/2018 14:01:35 08/17/2018 14:25:42 Active or passive immunization 663448279 Z23 Pain in testicle 9619636 9 N50.819 hx of hydrocele, not visible on exam todaywill ultrasound plan pending results. Sprain of ankle 46381109 S93.401A old injuryrevi ewed RICEcompre ssion stockingss trengtheni ng exercises [id number] Gideon Reece MD , [facility], [address] [place] [address] 10/14/2018 14:48:14 10/14/2018 15:07:46 Hemorrhoids 98307039 K64.9 [id number] Araseli Anthony PA-C , [facility], [address] [place] [address] 02/06/2019 10:44:59 02/06/2019 11:26:15 Hemoptysis 29375557 R04.2 Acute bronchitis 3413642 2 J20.9 H&P consistent with acute bronchitis . Will check CXR to r/o PNA, neoplasm as cause of hemoptysis . Tessalon perles three times daily as needed for cough. Mucinex for chest congestion . Increase fluids and rest. Tylenol (not to exceed 3g/day) as needed for headache, pain, fever. Saline nasal spray. Humidified air. Call if symptoms worsen considerab ly in 3-5 days, or with high fever over 100.4 degrees F. [id number] Betty Lujan PA-C , [facility], [address] [place] [address] 06/28/2019 11:42:24 06/28/2019 13:58:26 Viral conjunctivitis 61837891 B30.9 - conjunctiv itis is very contagious - wash hands frequently - avoid touching eyes with hands- wipe any discharge with a tissue and then wash hands- return to office if not improving in 1-2 days, or if you develop pain or swelling of the eyes- no antibiotic s indicated at this time Epidermoid cyst of skin 159373704 L72.0 - without infection currently- call office if worsening, and could consider referral for removal [id number] Olga Ma MD , [facility], [address] [place] [address] 01/02/2020 14:00:07 01/02/2020 17:54:11 Abnormal sexual function 99553131 R37 lab check, see how he is. Skin lesion 90152377 L98 .9 use steroid creams x2 wks if no better, follow up in 2 wks for biopsy - can be a 15 minute visit not in procedure room [id number] Mack Koch MD , [facility], [address] [place] [address] 03/07/2020 12:04:58 03/08/2020 09:51:29 Low back strain 501561124 S39.012A Reviewed OK to use heat or ice, then try gentle stretching with small movements. Reviewed use and precaution s with ibuprofen and cyclobenza tye. Offered PT; you will let us know if you are interested . Contact us if not improving [id number] Alicia Gautam MD , [facility], [address] [place] [address] 10/04/2020 09:48:14 10/07/2020 09:11:42 Gastritis 6618030 K29.70 Take medication x 2 weeks. If you do not see improvemen t, let us know. If better, OK to slowly wean off of the medication [id number] Diamond Nelson NP , [facility], [address] [place] [address] 04/07/2021 09:39:02 04/07/2021 10:18:31 Gastroesophageal reflux disease 265129934 K21.9 New onset in last 6-8 months; Had trial of omeprazole for ?gastric ulcer in Oct 2020, initially improved but worsened when he tapered off. Will restart omeprazole 20mg daily Refer to GI, [facility] - phone number given & pt will call to schedule appt Reviewed red flags & when to f/u [id number] Diamond Lea RN [facility], [address] [address] 06/25/2021 09:47:47 06/25/2021 13:51:03 [id number] Dasia Subramanian PA-C , [facility], [address] [place] [address] 01/20/2023 13:54:46 01/21/2023 11:49:29 Cough 44149093 R05.9 Dry cough for 2-3 weeks.May be postviral. No pulmonary history and quit smoking 10 years ago.Clear lung exam.Advis ed otc mucinex and if persists for another 1 week or any acute worsening, please RTO. [id number] MD HAIDER Thrasher, [facility], [address] [place] [address] 01/10/2024 11:10:13 01/10/2024 12:07:12 Adult health examination 369677521 Z00.00 see Risk Assessment and Lifestyle Change Counseling section above; Td due 2031 Depression screening 171 792732 Z13.31 depression screening tool administer ed Screening for alcohol abuse 640403846 Z13.39 Alcohol use screening tool administer ed Unintentio nal weight loss 784495189 R63.4 down from 192-185 Cough 25090858 R05.9 see above; dry tickle, can have spasms. BRB on Wednesday [id number] Olga Ma MD , [facility], [address] [place] [address] 01/24/2024 15:02:29 01/27/2024 13:53:04 Vaccination delayed 8097021976 31466 Z28.39 flu Insomnia 279820020 G47.0 0 not sleeping well. not cler if sleep apnea or another sleep issue; refer Exposure t o sexually transmissible disorder 671669127 Z20.2 check for weight loss Stress 29011161 Z73.3 discussed anxiety, therapy or meds, he prefers to defer for now. Unintentio nal weight loss 835918292 R63.4 down from 192-185; concerned for low testostero ne if we find nothing I will refer to Endo for assessment [id number] MD HAIDER Thrasher, [facility], [address] [place] [address] 05/24/2024 09:28:49 05/25/2024 09:59:08 Dyspnea on exertion 09183627 R06.09 seeing pulmonary; bronchosco py scheduled for June 15 [id number] , [facility], [address] [place] [address] 08/31/2024 07:57:38 09/02/2024 12:02:36 Influenza vaccination declined 822497286 Z28.21 Diarrhea 15405166 R19.7 ddx: IBS, IBD, colitis, CRCabdomen mildly tender throughout palpation, no retroperit andrea signssudde n change in bowel habits to predominan tly diarrheawi ll check labs given long standing diarrhea - check for electrolyt e abnormalit ieslow clinical suspicion for infectious diarrheast art antidiarrh eal - loperamide reviewed ADRs of this medication advised low-FODMAP diet, gave handout in officedisc ussed return precaution s Altered david wel function 58022943 R19.4 see abovefamil y hx of colon CA - paternal auntgiven sudden change in bowel habits, advised colonoscop yGI referral also placeddisc ussed return precaution s [id number] DIANNA Cedillo , [facility], [address] [place] [address] 10/16/2024 07:50:56 10/17/2024 11:34:03 Vaccination not done [id number] 9108 Z28.29 Patient declined the flu vaccine at this time. 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 checked with Gen surg they do actually treat this; if not we will change referral checked with general surgeon and they do not handle this, redirect to Dr. Danette Samaniego at [facility] Bronchiectasis [id number] J47.9 improved; no longer coughing up tissue able to exericse again [id number] Rita Kelly MD , [facility], [address] [place] [address] 11/23/2024 13:23:22 11/24/2024 12:14:39 Dysuria 74153173 R30.0 Patient with urinary symptoms.N o symptoms of pyelonephr itis.Will send urine for culture.. rule out STDspt opts to empiricall y start treatment for UTIPatient instructed to follow up if not better or with new symptoms. [id number] Rita Kelly MD , [facility], [address] [place] [address] 12/28/2024 14:55:37 12/29/2024 11:16:54 Dysuria 25476083 R30.0 will send culture and STD screenoffe red HIV in 3 months, too soon to test todaysafe sex encouraged will notify pt of results Health Concerns Section Related Observation LastModified by Organization Detai ls LastModified Time None Recorded Concern Status LastModified by Organization Details LastModified Time None Recorded Advance Directives Directive N: form given Payers Encounter Date Sequence Insurance Name Policy Number Policy Mcgee Covered Member ID Mcgee Member ID Guarantor Name 05/24/2024 1 [facility] [place] [id number] Stef R Jourdan [id number] Stef R Jourdan 08/31/2024 1 [facility] (O) [id number] Stef R Jourdan [id number] Stef R Jourdan 10/16/2024 1 [facility] [place] [place] [id number] Stef R Jourdan [id number] Stef R Jourdan 11/23/2024 1 [facility] [place] [place] [id number] Stef R Jourdan [id number] Stef R Jourdan 12/28/2024 1 [facility] [place] [place] [id number] Stef R Jourdan [id number] Stef R Jourdan Notes Date Note Type Note Provider Name and Address Organization Details Recorded Time text/html persisting chest congestionPresented to the ER on 04/[address] was obtained which showed BronchiectasisSaw pulmonology on as Bronchoscopy scheduled for 06/15/24feels a little better after treatment with moxifloxacin -like 10-20%still very tired Olga Ma MD [address] [place] [address], [phone], [facility] 05/24/2024 21:43:54 4 text/html IN note: pt presents for ? IBS x 6-8weeks ,no improvement, pt experiencing stomach pain, soft bowel movements, no further specific concerns noted Pt notes several month long history of abdominal distress.Pt notes he hasn't had a normal bowel movement in months - lots of soft, loose stools that stick to the toilet.Endorses widespread abdominal pain, that typically resolves after a bowel movement.Associated symptoms include bloating. Has never had episodes of this previously. Did try a probiotic and eating more yogurt - did not help.Tried pepto - made stool black Denies nausea, vomiting, hematemesis, blood in stool,Denies changes in diet SANTHOSH MEDINA [address] [place] [address], [phone], [facility] 08/31/2024 08:38:00 4 text/html Discuss SMA syndrome./ review CT of abd and pelvisno proxy on file Olga Ma MD [address] [place] [address], [phone], [facility] 10/16/2024 13:46:11 5 text/html pt presents with few days dysuria, frequency. No discharge. No hx UTI. no fever No change in chronic back pain. Urine cloudy at times Rita Kelly MD [address] [place] [address], [phone], [facility] 11/23/2024 13:47:49 5 text/html [place] sex with a stranger one week ago. Condom broke. Now with testicles burning, penis burning and burning with urination. no lesions, no rashes, no discharge. Rita Kelly MD [address] [place] [address], [phone], [facility] 12/28/2024 15:23:21
--- OUTSIDE RECORDS SUMMARY | 2025-01-03 08:25 | XMS_ITS | Continuity of Care Document ---
Author Organization [facility], , [facility], OFFICE Address [address] [place] [address] Care Team Providers Care Back Tufter Name Role Phone OLGA MA Primary Care Provider Assessment No assessment recorded. Plan of Treatment Reminders Order Date Submit Date Provider Last Modified By Organization Details Last Modified Time Details Appointments None recorde d. Lab culture , urine 025 12/28/19 25 [facility], [address] [place] [address], [address], 5 07:47:20 CT + NG RNA, urine 025 12/28/19 25 [facility], [address] [place] [address], [address], 5 15:42:01 Referral None recorde d. Procedures None recorde d. Surgeries None recorde d. Imaging None recorde d. Medication Orders None recorde d. Patient TargetsNo targets recorded. Patient InstructionsNo instructions recorded. Reason for Referral None Reported. Problems Name Problem SNOMED Code Status Onset Date Resolution Date Notes Provider Name and Address Organization Details Recorded Time Fracture of ankle 24956709 Completed 09/20/2013 Not Available [facility] 3 02:04:28 Nervous system symptoms Completed 09/20/2013 Not Available [facility] 3 02:03:49 Cough 64379026 Completed 200809/20/2013 Not Available [facility] 3 02:01:10 Wheezing 68243130 Completed 09/20/2013 Not Available [facility] 3 02:04:09 Sprain of ankle and/or foot 038873873 Completed 09/20/2013 Not Available [facility] 3 02:04:13 Urinary tract infectiou s disease 51859113 Completed 09/20/2013 Not Available [facility] 3 02:01:59 Anxiety state 655467968 Active 2008 Diamond trevizo, [facility] 5 10:57:02 Influenza 0389175 Completed 09/20/2013 Not Available [facility] 3 02:02:22 Acute pharyngit is 746467163 Completed 09/20/2013 Not Available [facility] 3 02:01:18 Joint pain in ankle and foot Completed 09/20/2013 Not Available [facility] 3 02:01:27 Acute upper respirato ry infection 32129225 Completed 09/20/2013 Not Available [facility] 3 02:02:18 On examinati on - a rash Completed 09/20/2013 Not Available [facility] 3 02:00:50 Herpes zoster 4703784 Completed 09/20/2013 Not Available [facility] 3 02:02:58 Dysuria 55979584 Completed 09/20/2013 Not Available [facility] 3 02:02:01 Urethriti s 38457784 Completed 200809/20/2013 Not Available [facility] 3 02:04:06 Acute bronchiti s 34022020 Completed 09/20/2013 Not Available [facility] 3 02:01:37 History of heroin abuse 25291062613 9105 Active 2018 Betty Lujan PA-C [address] [place] [address], [phone] , [facility] 9 11:49:56 Obstructi ve sleep apnea syndrome 93700559 Active 2023 Meagan Thorpe RN BSN null, [facility] 4 14:48:02 Bronchiec tasis 00631902 Active 2023 per pulm note 05/05/24 Meagan Thorpe RN BSN null, [facility] 4 17:06:12 Problem Notes None recorded. Procedures Surgical History Date Name Laterality Status Provider Name and Address Organization Details Recorded Time 1 Bhumika - Upper Endoscopy completed Patrick Bai MD [address] [place], [address], [facility] 06/25/2021 11:31:42 8 POC Urinalysis Testing completed Jaymie William [facility] 12/29/2017 13:39:52 8 Refraction completed [facility] 12/03/2017 13:18:35 5 Refraction completed [facility] 10/11/2015 10:53:53 3 Treatment and Advice completed Paty Ortiz Mph, LPT [address] [place], [phone], [facility] 05/09/2013 13:55:04 1 Smoking cessation counseling completed Olga Ma MD [address] [place], [address], [facility] 04/29/2011 14:35:28 9 Nebulizer Tx completed Lavern Patel LPN [facility] 07/04/2009 12:12:40 9 Treatment and Advice completed Regine Byrd, MARISOL [address] [place], [phone], [facility] 06/27/2009 15:09:58 Imaging Results None recorded. Procedure Notes None recorded. Medical Equipment None [...] lable prednisol one acetate 1 % eye drops,[facility] 06/28 completed Not Available Not Available [...] 5 days. 03/07 completed complted the course 01/02/20MS Not Available Not Available Not Available omeprazol [...] Relief 50 mcg/actua tion nasal spray,[employer] [place] 1 spray every day by intranas al route. 06/14 completed Not Available Not Available Not Available Wixela Inhub 250 mcg-50 mcg/dose powder for inhalatio n TAKE 1 PUFF BY MOUTH TWICE A DAY 10/16 completed Not Available Not Available Not Available Vitals Date Recorded Body height Heart rate Body mass index (BMI) Body weight Systolic blood pressure Diastolic blood pressure Provider Name and Address Organization Details Last Updated DateTime 5 198.12 cm 76 /min 23.5 kg/m2 37829.2 5 g 130 mm[Hg] 68 mm[Hg] Kristen Herrera [facility] 5 15:12:27 Social History Question Answer Notes LastModified by Organizat ion Details LastModified Time Tobacco Smoking Status Former Smoker quit 09/10/2012 smoked 10 yrs Not Available [facility] 03/26/2011 02:08:12 Do You Have An Advance [...] Of Your Most Recent Tobacco Screening? 11/23/2024 [email or web address] Information not available 11/23/2024 How Many Children Do You Have? 2 Virginie Girl January 2011; Stef Boy March 2013; Son Born Oct 2010 Lives In [place] With Mother Information not available 04/29/2011 Are [...] virus, trivalent, preservative 1 completed Not Available [facility] 11/18/2019 02:18:12 pneumococcal polysaccharide PPV23 1 completed Not Available [facility] 11/18/2019 02:14:32 Tdap 3 completed Not Available [facility] 11/18/2019 02:31:15 Influenza, split virus, trivalent, preservative 0 completed Not Available [facility] 11/18/2019 02:29:16 Novel [id number] 0 completed Not Available [facility] 11/18/2019 02:17:43 Influenza, split virus, quadrivalent, PF 6 completed Not Available [facility] 11/18/2019 02:21:07 influenza, unspecified formulation 4 completed Radha trevizo, [facility] 09/17/2014 16:57:42 Influenza, split virus, quadrivalent, PF 7 completed Not Available [facility] 11/18/2019 02:33:35 Influenza, split virus, quadrivalent, PF 8 completed Not Available [facility] 11/18/2019 02:33:02 Tdap 0 completed Not Available [facility] 11/18/2019 02:26:04 Tdap 2 completed JOYCELYN Miller, [facility] 01/10/2024 11:46:18 Past Encounters Encounter ID Performer Location Encounter Start Date Encounter Closed Date Diagnosis/Indication Diagnosis SNOMED-CT Code Diagnosis ICD10 Code Diagnosis Note [id number] Rita Kelly MD , [facility], [address] [place] [address] 12/28/2024 14:55:37 12/29/2024 11:16:54 Dysuria 41537416 R30.0 will send culture and STD screenoffe red HIV in 3 months, too soon to test todaysafe sex encouraged will notify pt of results Health Concerns Section Related Observation LastModified by Organization Detai ls LastModified Time None Recorded Concern Status LastModified by Organization Details LastModified Time None Recorded Payers Encounter Date Sequence Insurance Name Policy Number Policy Mcgee Covered Member ID Mcgee Member ID Guarantor Name 12/28/2024 1 [facility] ([facility]) [id number] Stef Soliman [id number] Stef Soliman Notes Date Note Type Note Provider Name and Address Organization Details Recorded Time 12/28/2024 text/html [place] was [place] and had sex with a stranger one week ago. Condom broke. Now with testicles burning, penis burning and burning with urination. no lesions, no rashes, no discharge. Rita Kelly MD [address] [place] [address], [phone], [facility] 12/28/2024 15:23:21
== END 2025-01-03 08:11 | disposition home or self-care (01) ==
LOC: HO.US 08:10
PROVIDERS: PCP Nurse Practitioner Family; Visit Provider Surgery Vascular Surgery
DX: K55.1 Chronic vascular disorders of intestine (principal)
CPT/HCPCS: 93976

== ENCOUNTER → 2025-01-03 08:13 | Outpatient (BNV) | payer OTHER, SELFPAY | PROVIDERS: PCP Nurse Practitioner Family; Visit Provider Radiology Diagnostic Radiology | DX: K55.1 Chronic vascular disorders of intestine (principal) | CPT/HCPCS: 93976 ==

== ENCOUNTER 2025-01-25 09:52 | Outpatient (AMB) | payer OTHER, SELFPAY ==
[2025-01-25 10:03] VITALS: BMI 23.5
--- NOTE | 2025-01-25 10:03 | A.OFFVIS_ITS ---
Vital Signs 01/25/25 10:03 Height 6 ft 6 in Weight 203 lb BMI 23.5 Intake Visit Reasons: follow up s/p Mesenteric US 01/03/25 Intake Note: follow up SMA US 01/03/25. Pt states he still gets abdominal pain w/ or w/o eating. Pt is staying active and continues to have weight fluctuation. Accompanied by: Self / Same As Patient Allergies No Known Allergies Allergy (Verified 01/25/25 10:05) HPI HPI follow up s/p Mesenteric US 01/03/25: Details: The patient is a 39-year-old male presenting for a routine surveillance follow- up regarding mesenteric ischemia. The patient has a prior history of mesenteric ischemia which is currently under routine surveillance and follow-up to ensure stability. He describes intermittent abdominal pain, indicating a possible correlation with the mesenteric condition, but symptoms are not consistently present. The ultrasound examination has shown satisfactory blood flow in all three primary vessels supplying the gut, thereby ruling out current blood flow complications related to his condition. His weight has fluctuated over time, recently noted at a BMI of 23.5, with past weights varying between the 190s and 210 pounds, causing concern but not necessarily linked to his primary diagnosis. The patient denies other risk factors such as tobacco use, diabetes, or significant family history of vascular concerns, which aids in narrowing the diagnostic focus largely on the current and previous mesenteric concerns. He now presents for follow-up evaluation with ultrasound Review of Systems Const All systems reviewed & are unremarkable except as noted in HPI and below Reports no additional complaints ENT Reports Normal hearing present Card Denies chest pain, Denies chest pain at rest, Denies chest pain with activity and Denies pedal edema Resp Denies cough GI Denies abdominal pain Musc Denies abnormal gait, Denies muscle cramps and Denies radiating pain into limb Skin/Breast Denies skin ulcer and Denies wounds Neuro Reports Normal hearing present and Denies abnormal gait Psych Reports no additional complaints Physical Exam Vital Signs: BMI result Body Mass Index 23.5 Const General: cooperative, healthy appearing and comfortable Orientation/consciousness: oriented to person, oriented to place and oriented to time HEENT Head: Yes normal to inspection Neck Neck: Yes normal visual inspection Carotids: no bruits Chest Chest palpation & inspection: normal inspection of the chest Resp Effort & Inspection: normal respiratory effort and able to speak in complete sentences Auscultation: clear to auscultation bilaterally, no crackles, no rales, no rhonchi and no wheezes Cardio Rate: regular rate Rhythm: regular rhythm Heart sounds: S1 normal heart sound present and S2 normal heart sound present Bruits: no carotid bruits Peripheral pulses: Peripheral pulses 2+ throughout GI Inspection: Yes normal to inspection Skin Wounds: no wounds Hair: normal Neuro General: oriented to person, oriented to place and oriented to time Cranial nerves: Yes CN's II-XII intact bilaterally and Yes Normal hearing present Cognition (Neuro): normal cognition Motor exam (neuro): 5/5 motor strength present throughout Extrem Other: venous exam: No significant superficial varicosities or spider telangiectasias, minimal edema General: No clubbing, No cyanosis and No edema Psych Appearance: grossly normal Mental Status: mental status grossly normal Speech and movement: Normal speech and movement present Results Reviewed Results Reviewed: Abdominal Doppler ultrasound demonstrates no significant mesenteric stenosis dated 01/03/2025 Assessment & Plan Assessment & Plan (1) Chronic mesenteric ischemia: Code(s): K55.1 - Chronic vascular disorders of intestine Category: Medical Plan: In short patient does not demonstrate any signs or symptoms of chronic mesenteric disease. Vasculature appears within normal limits. Also he has recently undergone upper and lower endoscopy with no significant findings. We did discuss routine meals on a scheduled basis to better optimize weight. Patient will follow up with us on an as-needed basis. Thank you for allowing us to participate in his care. If there are any questions or concerns please do not hesitate to contact us Patient Instructions: - Be mindful of weight fluctuations; consider consistent, balanced meals. - Return for evaluations as scheduled or if new concerning symptoms arise. - Practice stress-reduction techniques as needed. Coding Level of Care Code Est Pt Level 4 (98678) Diagnoses Chronic mesenteric ischemia K55.1
--- OUTSIDE RECORDS SUMMARY | 2025-01-25 12:14 | XMS_ITS | Continuity of Care Document ---
Author Organization [facility], , [facility], OFFICE Address [address] [place] [address] Care Team Providers Care Monitoring Coordinator Name Role Phone OLGA [place] Primary Care Provider Assessment No assessment recorded. Plan of Treatment Reminders Order Date Submit Date Provider Last Modified By Organization Details Last Modified Time Details Appointments None recorde d. Lab culture , urine 025 12/28/19 25 [facility], [address] [place] [address], [id number], 5 07:47:20 CT + NG RNA, urine 025 12/28/19 25 [facility], [address] [place] [address], [id number], 5 15:42:01 Referral None recorde d. Procedures None recorde d. Surgeries None recorde d. Imaging None recorde d. Medication Orders None recorde d. Patient TargetsNo targets recorded. Patient InstructionsNo instructions recorded. Reason for Referral None Reported. Problems Name Problem SNOMED Code Status Onset Date Resolution Date Notes Provider Name and Address Organization Details Recorded Time Fracture of ankle 49782316 Completed 09/20/2013 Not Available [facility] 3 02:04:28 Nervous system symptoms Completed 09/20/2013 Not Available [facility] 3 02:03:49 Cough 95265291 Completed 200809/20/2013 Not Available [facility] 3 02:01:10 Wheezing 73274473 Completed 09/20/2013 Not Available [facility] 3 02:04:09 Sprain of ankle and/or foot 271998887 Completed 09/20/2013 Not Available [facility] 3 02:04:13 Urinary tract infectio us disease 25087587 Completed 09/20/2013 Not Available [facility] 3 02:01:59 Anxiety state 711812396 Active 2008 Diamond Edawrdo trevizo, [facility] 5 10:57:02 Influenz a 5571601 Completed 09/20/2013 Not Available [facility] 3 02:02:22 Acute pharyngi tis 625551933 Completed 09/20/2013 Not Available [facility] 3 02:01:18 Joint pain in ankle and foot Completed 09/20/2013 Not Available [facility] 3 02:01:27 Acute upper respirat ory infectio n 88522080 Completed 09/20/2013 Not Available [facility] 3 02:02:18 On examinat ion - a rash Completed 09/20/2013 Not Available [facility] 3 02:00:50 Herpes zoster 9110082 Completed 09/20/2013 Not Available [facility] 3 02:02:58 Dysuria 37036056 Completed 09/20/2013 Not Available [facility] 3 02:02:01 Urethrit is 98341953 Completed 200809/20/2013 Not Available [facility] 3 02:04:06 Acute bronchit is 71746297 Completed 09/20/2013 Not Available [facility] 3 02:01:37 History of heroin abuse 22959034833 9105 Active 2018 Betty Lujan PA-C [address] [place] [address], [phone] , [facility] 9 11:49:56 Obstruct jason sleep apnea syndrome 74954877 Active 2023 Meagan Thorpe RN BSN null, [facility] 4 14:48:02 Bronchie ctasis 23649052 Active 2023 per pulm note 05/05/24 Meagan Thorpe RN BSN null, [facility] 4 17:06:12 Chronic vascular insuffic iency of intestin e 555985440 Active 2024 chronic mesenter ic ischemia , concern for SMA see [facility] vascular note 12/21/24 BOLA Cueva, [facility] 5 12:52:20 Problem Notes None recorded. Procedures Surgical History Date Name Laterality Status Provider Name and Address Organization Details Recorded Time 1 Bhumika - Upper Endoscopy completed Patrick Bai MD [address] [place] [address], [phone], [facility] 06/25/2021 11:31:42 8 POC Urinalysis Testing completed Jaymie William [facility] 12/29/2017 13:39:52 8 Refraction completed [facility] 12/03/2017 13:18:35 5 Refraction completed Aisha [facility] 10/11/2015 10:53:53 3 Treatment and Advice completed Paty Ortiz Mph, LPT [address] [place] [address], [phone], [facility] 05/09/2013 13:55:04 1 Smoking cessation counseling completed Olga Ma MD [address] [place] [address], [phone], [facility] 04/29/2011 14:35:28 9 Nebulizer Tx completed Lavern Patel LPN [facility] 07/04/2009 12:12:40 9 Treatment and Advice completed Regine Byrd, PT [address] [place], [phone], [facility] 06/27/2009 15:09:58 Imaging Results None recorded. Procedure [...] completed Not Available Not Available Not Available Pyridium 200 mg tablet Take 1 tablet 3 times a day by oral route for 10 days. 2024 active Not Available Not Available Not Avai lable moxifloxa cordell 400 mg tablet TAKE 1 [...] prednisol one acetate 1 % eye drops,rayna pension 06/28 completed Not Available Not Available Not [...] WHEEZING OR SHORTNES S OF BREATH/D YSPNEA 01/23 completed Not Available Not Available Not Available tobramyci n 0.3 %-dexamet hasone 0.1 [...] Relief 50 mcg/actua tion nasal spray,rayna pension [place] 1 spray every day by intranas al [...] 5 198.12 cm 76 /min 23.5 kg/m2 98506.2 5 g 130 mm[Hg] 68 mm[Hg] Kristen Herrera [facility] 5 15:12:27 Social History Question Answer Notes LastModified by Organizat ion Details LastModified Time Tobacco Smoking Status Former Smoker quit 09/10/2012 smoked 10 yrs Not Available [facility] 03/26/2011 02:08:12 Do You Have An Advance Directive? No Form Given lhanlon Information not available 10/10/2009 What Is Your Level Of Alcohol Consumption? None 01/23/25- Has Not Cinsumed Alcohol In 5 Weeks Information not available 01/23/2025 What Is Your Level Of Caffeine Consumption? 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 11-15yearssin celastcigaret te Information not available 01/10/2024 How Many Days [...] Date Of Your Most Recent Tobacco Screening? 01/23/2025 Information not available 01/23/2025 How Many Children Do You Have? 2 Virginie Girl January 2011; Stef Boy March 2013; Son Born Oct 2010 Lives In [place] With Mother Information not available 04/29/2011 Are There Any Occupational Health Risks Where You Work? None Information not available 05/30/2018 What Is Your Current Pack Years? 10-19packyear s Information not available 01/10/2024 Seat Belts Used [...] virus, trivalent, preservative 1 completed Not Available [facility] 11/18/2019 02:18:12 pneumococcal polysaccharide PPV23 1 completed Not Available [facility] 11/18/2019 02:14:32 Tdap 3 completed Not Available [facility] 11/18/2019 02:31:15 Influenza, split virus, trivalent, preservative 0 completed Not Available [facility] 11/18/2019 02:29:16 Novel [id number] 0 completed Not Available [facility] 11/18/2019 02:17:43 Influenza, split virus, quadrivalent, PF 6 completed Not Available [facility] 11/18/2019 02:21:07 influenza, unspecified formulation 4 completed Radha trevizo [facility] 09/17/2014 16:57:42 Influenza, split virus, quadrivalent, PF 7 completed Not Available [facility] 11/18/2019 02:33:35 Influenza, split virus, quadrivalent, PF 8 completed Not Available [facility] 11/18/2019 02:33:02 Tdap 0 completed Not Available [facility] 11/18/2019 02:26:04 Tdap 2 completed JOYCELYN Miller, [facility] 01/10/2024 11:46:18 Past Encounters Encounter ID Performer Location Encounter Start Date Encounter Closed Date Diagnosis/Indication Diagnosis SNOMED-CT Code Diagnosis ICD10 Code Diagnosis Note [id number] Rita Kelly MD , [facility], [address] [place] [address] 12/28/2024 14:55:37 12/29/2024 11:16:54 Dysuria [id number] R30.0 will send culture and STD screenoffe [...] Mcgee Member ID Guarantor Name 12/28/2024 1 [facility] [id number] Stef Feliz Kams [id number] Stef R Jourdan Notes Date Note Type Note Provider Name and Address Organization Details Recorded Time 12/28/2024 text/html [place] had sex with a stranger one week ago. Condom broke. Now with testicles burning, penis burning and burning with urination. no lesions, no rashes, no discharge. Rita Kelly MD [address] [place] [address], [phone], [facility] 12/28/2024 15:23:21
--- OUTSIDE RECORDS SUMMARY | 2025-01-25 12:14 | XMS_ITS | Data Portability ---
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 I reviewed his first visit. Apparently he was in [place], had intercourse, and the condom broke. He is also , and is feeling very guilty about this. His ongoing symptoms include worries about a rash on his legs and various bumps on his penis. He describes a mild burning at the tip of his penis. There is no discharge. Last urine analysis and culture several weeks ago was normal. There has been no fever or back pain. He has tried to ignore the symptoms, but they continue to bother him. Objective urine analysis noted and is unremarkable. Direct inspection of his penis and scrotum is unremarkable. The patient points to a variety of small macules and papules that appear benign to me. Assessment-uncl ear etiology to ongoing dysuria. Patient understands that anxiety may play a role here. Plan-I advised a trial of Pyridium, urology consultation and follow-up if not improving. He might want to consider counseling if the medical workup is negative. The patient is comfortable with this plan. [email or web address] Not available 01/23/2025 08:46:55 Plan of Treatment Reminders Order Date Submit Date Provider Last Modified By Organization Details Last Modified Time Details Appointments None recorded. Lab urinalysis , dipstick 2024 025 [facility], [address] [facility], [place], [address], 5 08:49:56 culture, urine 2024 025 [facility], [address] [place] [address], [address], 5 07:47:20 CT + NG RNA, urine 2024 025 [facility], [address] [place] [address], [address], 5 15:42:01 culture, urine 2024 025 [facility], [address] [place] [address], [address], 5 22:37:50 CT + NG RNA, urine 2024 025 [facility], [address] [place] [address], [address], 5 14:01:59 CBC 2023 024 [facility], [address] [place] [address], [address], 4 10:43:41 CMP, serum or plasma 2023 024 [facility], [address] [place] [address], [address], 4 11:50:15 lipase, serum or plasma 2023 024 [facility], [address] [place] [address], [address], 4 11:50:16 Referral urologist referral - persistent dysuria- see office note- 2024 025 [email or web address] [facility], [address] [place] [address], [place], [address], 5 11:38:44 general surgeon referral - Referral needed for Vascular surgeon possible Superior mesenteric artery syndrome - is this something you handle? worse lately, worse after eating, CT 10/07 suggesting SMA syndrome, he is tall and thin and a setup. 2023 [email or web address] Valerio Jacobs, [address] [place] [address] , 2nd [facility] [address], [place], [address], 5 08:40:01 gastroente rologist referral [email or web address] [facility], [address] [place] [address], [address], 4 14:35:14 Procedures colonoscop y procedure (PROC) 2023 [facility], [address] [place], [address], 4 07:20:00 Surgeries None recorded. Imaging None recorded. Medication Orders Pyridium 200 mg tablet 2024 025 [facility]armacy #2024, [address] [place], [address], 5 08:34:27 nitrofuran toin monohydrat e/macrocry stals 100 mg capsule 2024 025 [facility]/Pharmacy #2024, [address] [place], [address], 5 15:14:32 loperamide 2 mg tablet 2023 024 [facility]/Pharmacy #2024, [address] [place], [address], 4 08:12:00 Patient TargetsNo targets recorded. Patient Instructions Encounter Date Encounter Id Patient Instructions Last Modified By Organization Details Last Modified Time 08/31/2024 [id number] learning about t he low fodmap diet for irritable bowel syndrome (IBS) [email or web address] Not available 08/31/2024 08:28:04 After a discussi on of treatment options, which included consideration of best practices and patient preferences, the? ? 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 worse lately, worse after eating, CT 10/07 suggesting SMA syndrome, he is tall and thin and a setup. Referring Physician: Janki Caldwell, [facility], Encounter Date: 10/16/2024 Urologist Referral for Dysur ia persistent dysuria- see office note- Referring Physician: Gideon Reece, [facility], Encounter Date: 01/23/2025 Results Created Date Observation Date Name Description Value Unit Range Abnormal Flag Note LastModifiedBy Organization Detail LastModifiedTime 08/31/2008/31/2024 CBC WBC 4.69 K/? ? ?L 4.23-9 .07 Not Available [address], [address], 08/31/2024 10:43:41 08/31/2008/31/2024 CBC RBC 5.12 M/? ? ?L 4.63-6 .08 Not Available [address], [address], 08/31/2024 10:43:41 08/31/2008/31/2024 CBC HGB 15.7 g/dL 13.7-1 7.5 Not Available [address], [address], 08/31/2024 10:43:41 08/31/2008/31/2024 CBC HCT 46.2 % 40.1-5 1.0 Not Available [address], [address], 08/31/2024 10:43:41 08/31/2008/31/2024 CBC MCV 90.2 fL 79.0-9 2.2 Not Available [address], [address], 08/31/2024 10:43:41 08/31/2008/31/2024 CBC MCH 30.7 pg 25.7-3 2.2 Not Available [address], [address], 08/31/2024 10:43:41 08/31/2008/31/2024 CBC MCHC 34.0 g/dL 32.3-3 6.5 Not Available [address], [address], 08/31/2024 10:43:41 08/31/2008/31/2024 CBC plt 285 K/? ? ?L 163-33 7 Not Available [address], [address], 08/31/2024 10:43:41 08/31/2008/31/2024 CBC MPV 10.9 fL 9.4-12 .4 Not Available [address], [address], 08/31/2024 10:43:41 08/31/2008/31/2024 CBC neut% 52.5 % 34.0-6 7.9 Not Available [address], [address], 08/31/2024 10:43:41 08/31/2008/31/2024 CBC neut# 2.46 1.78-5 .38 Not Available [address], [address], 08/31/2024 10:43:41 08/31/2008/31/2024 CBC lymph % 28.1 % 21.8-5 3.1 Not Available [address], [address], 08/31/2024 10:43:41 08/31/2008/31/2024 CBC lymph # 1.32 K/? ? ?L 1.32-3 .57 Not Available [address], [address], 08/31/2024 10:43:41 08/31/2008/31/2024 CBC mono% 12.4 % 5.3-12 .2 high Not Available [address], [address], 08/31/2024 10:43:41 08/31/2008/31/2024 CBC mono# 0.58 0.30-0 .82 Not Available [address], [address], 08/31/2024 10:43:41 08/31/2008/31/2024 CBC eo% 5.5 % 0.8-7. 0 Not Available [address], [address], 08/31/2024 10:43:41 08/31/2008/31/2024 CBC eo# 0.26 0.04-0 .54 Not Available [address], [address], 08/31/2024 10:43:41 08/31/2008/31/2024 CBC baso% 1.3 % 0.2-1. 2 high Not Available [address], [address], 08/31/2024 10:43:41 08/31/2008/31/2024 CBC baso# 0.06 0.00-0 .08 Not Available [address], [address], 08/31/2024 10:43:41 08/31/2008/31/2024 CBC RDW-CV 11.6 % 11.6-1 4.4 Not Available [address], [address], 08/31/2024 10:43:41 08/31/20 24 08/31/2024 CBC Ig% 0.200 % 0.000- 1.500 Ig % >0.5 Indic ates possi ble Left Shift Not Available [address], [address], 08/31/2024 10:43:41 08/31/20 24 08/31/2024 CBC Ig# 0.010 0.000- 0.093 Not Available [address], [address], 08/31/2024 10:43:41 08/31/2008/31/2024 CBC NRBC% 0.0 % 0.0-0. 2 Not Available [address], [address], 08/31/2024 10:43:41 08/31/20 24 08/31/2024 CBC NRBC# 0.000 0.000- 0.012 Not Available [address], [address], 08/31/2024 10:43:41 08/31/2008/31/2024 COMP. METAB OLIC PANEL glucose 88 mg/dL 70-100 Not Available [address], [address], 08/31/2024 11:50:15 08/31/2008/31/2024 COMP. METAB OLIC PANEL BUN 14 mg/dL 7-18 Not Available [address], [address], 08/31/2024 11:50:15 08/31/2008/31/2024 COMP. METAB OLIC PANEL creatinine 1.1 mg/dL 0.8-1. 3 Not Available [address], [address], 08/31/2024 11:50:15 08/31/20 24 08/31/2024 COMP. METAB OLIC PANEL B/C 12.7 ratio Not Available [address], [address], 08/31/2024 11:50:15 08/31/2008/31/2024 COMP. METAB OLIC PANEL GFR >=60ML /MIN [...] borat ion (CKD- EPI) Equat ion (Bola r et. al 2020) as recom guillermo d by the Natio nal Kidne y Found ation . eGFR is based on age, serum creat inine , and sex. CKD-E PI does not calcu late eGFR by race, does not apply to child minnie (age <18 years ), and shoul d not be used in pregn tommie. Not Available [address], [address], 08/31/2024 11:50:15 08/31/2008/31/2024 COMP. METAB OLIC PANEL sodium 141 mmol/ L 136-14 5 Not Available [address], [address], 08/31/2024 11:50:15 08/31/20 24 08/31/2024 COMP. METAB OLIC PANEL potassium 4.8 mmol/ L 3.5-5. 1 Not Available [address], [address], 08/31/2024 11:50:15 08/31/20 24 08/31/2024 COMP. METAB OLIC PANEL chloride 101 mmol/ L 96-107 Not Available [address], [address], 08/31/2024 11:50:15 08/31/20 24 08/31/2024 COMP. METAB OLIC PANEL anion gap 9.2 5.0-15 .0 Not Available [address], [address], 08/31/2024 11:50:15 08/31/20 24 08/31/2024 COMP. METAB OLIC PANEL CO2 31 mmol/ L 21-32 Not Available [address], [address], 08/31/2024 11:50:15 08/31/20 24 08/31/2024 COMP. METAB OLIC PANEL calcium 9.5 mg/dL 8.5-10 .3 Not Available [address], [address], 08/31/2024 11:50:15 08/31/20 24 08/31/2024 COMP. METAB OLIC PANEL total protein 7.4 g/dL 6.4-8. 2 Not Available [address], [address], 08/31/2024 11:50:15 08/31/20 24 08/31/2024 COMP. METAB OLIC PANEL albumin 4.3 g/dL 3.4-5. 0 Not Available [address], [address], 08/31/2024 11:50:15 08/31/20 24 08/31/2024 COMP. METAB OLIC PANEL globulin 3.1 g/dL Not Available [address], [address], 08/31/2024 11:50:15 08/31/20 24 08/31/2024 COMP. METAB OLIC PANEL A/G 1.4 ratio 0.8-2. 0 Not Available [address], [address], 08/31/2024 11:50:15 08/31/20 24 08/31/2024 COMP. METAB OLIC PANEL total bilirubin 0.50 mg/dL 0.00-1 .00 Not Available [address], [address], 08/31/2024 11:50:15 08/31/20 24 08/31/2024 COMP. METAB OLIC PANEL AST 13 U/L 0-37 Not Available [address], [address], 08/31/2024 11:50:15 08/31/20 24 08/31/2024 COMP. METAB OLIC PANEL ALT 27 U/L 6-63 Not Available [address], [address], 08/31/2024 11:50:15 08/31/20 24 08/31/2024 COMP. METAB OLIC PANEL alk. phos. 71 U/L 50-136 Not Available [address], [address], 08/31/2024 11:50:15 08/31/20 24 08/31/2024 LIPAS E lipase 38 U/L 16-77 Not Available [address], [address], 08/31/2024 11:50:16 11/23/19 25 11/24/2024 CHLAM YDIA/ GC, URINE KATIE N. gonorrhoeae GC NEG negati ve normal Not Available [address], [address], 11/24/2024 14:01:59 11/23/19 25 11/24/2024 CHLAM YDIA/ GC, URINE KATIE C. trachomatis CT NEG negati ve normal Not Available [address], [address], 11/24/2024 14:01:59 11/23/19 25 11/24/2024 CULTU RE, URINE , ROUTI NE culture, urine, routine CULTU RE, URINE , ROUTI NE Micro Numbe r: [id number] Test Statu s: Final Speci men Sourc e: Urine Speci men Quali ty: Adequ ate Resul t: No Growt h Not Available [facility] [address], [place], [address], 11/24/2024 22:37:50 12/28/19 25 12/30/2024 CULTU RE, URINE , ROUTI NE culture, urine, routine CULTU RE, URINE , ROUTI NE Micro Numbe r: [id number] Test Statu s: Final Speci men Sourc e: Urine Speci men Quali ty: Adequ ate Resul t: No Growt h Not Available [facility] [address], [place], [address], 12/30/2024 07:47:20 12/28/19 25 01/02/2025 CHLAM YDIA/ GC, URINE KATIE N. gonorrhoeae GC NEG negati ve normal Not Available [address], [address], 01/02/2025 15:42:01 12/28/19 25 01/02/2025 CHLAM YDIA/ GC, URINE KATIE C. trachomatis CT NEG negati ve normal Not Available [address], [address], 01/02/2025 15:42:01 01/12/20 25 01/12/2025 ANATO NIELS PATHO LOGY path report [facility] [address] [place] [address] Lab Direc tor: Justin villanueva MD Surgi golden Patho logy Repor t Acces joel #: [id number] FINAL PATHO LOGIC DIAGN OSIS: A. DUODE NUM, BIOPS Y: No patho logic abnor malit y. B. STOMA CH, BIOPS Y: No patho logic abnor malit y. C. COLON BIOPS Y: No patho logic abnor malit y; negat jason for acute and micro scopi c colit is. Cate ctron icall y Norma d Out By Justin villanueva MD By his/h er delphine rosales above , the patho logis t liste d as perla blanco the Final Diagn osis certi fies that he/sh e has perso katherine revie wed this case and confi rmed or corre cted the diagn osis. [facility] Epiga stric abdom inal pain, Nause a This is the patie nt's first colon oscop y, Chron ic diarr hea SPECI MENS SUBMI TTED: A: DUODE NUM, BIOPS Y B: STOMA CH, BIOPS Y C: COLON BIOPS Y GROSS DESCR IPTIO N A. DUODE NUM, BIOPS Y: Forma lebron: Multi ple fragm ents up to 0.2 cm entir ashok submi tted A1. B. STOMA CH, BIOPS Y: Forma lebron: Fragm ents 0.3 to 0.4 cm entir ashok submi tted B1. C. COLON BIOPS Y: Forma lebron: Fragm ents 0.3 cm entir ashok submi tted C1. LT 2024 Gross ing Staff : [facility] Patie nt Name: RICHARD AVILES : 1984 (Age: 39) Sex: M 7 Insti tutio n: [facility] Locat ion: [facility] Date of Opera tion: 2024 Date of Acces joel: 2024 Repor jonathan: 2024 13:42 Resul ts To: Patrick woody MD, MPH, BA Not Available [facility] (Outpatient) [address] [place], [address], 01/12/2025 15:49:49 01/24/2001/23/2025 POC UA glu UA NEGATI VE Not Available [facility] [address] [place] [address], [address], 01/23/2025 08:28:18 01/24/2001/23/2025 POC UA clarity UA CLEAR Not Available [facility] [address] [place], [address], 01/23/2025 08:28:18 01/24/2001/23/2025 POC UA uro UA 0.[address] [facility] [address] [place] [address], [address], 01/23/2025 08:28:18 01/24/2001/23/2025 POC UA ket UA NEGATI VE Not Available [facility] [address] [place] [address], [address], 01/23/2025 08:28:18 01/24/2001/23/2025 POC UA pro UA NEGATI VE Not Available [facility] [address] [place] [address], [address], 01/23/2025 08:28:18 01/24/2001/23/2025 POC UA nit UA NEGATI VE Not Available [facility] [address] [place] [address], [address], 01/23/2025 08:28:18 01/24/2001/23/2025 POC UA candelaria UA NEGATI VE Not Available [facility] [address] [place] [address], [address], 01/23/2025 08:28:18 01/24/2001/23/2025 POC UA pH UA 6.[address] [facility] [address] [place] [address], [address], 01/23/2025 08:28:18 01/24/2001/23/2025 POC UA SG UA 1.[address] [facility] [address] [place] [address], [address], 01/23/2025 08:28:18 01/24/2001/23/2025 POC UA color UA YELLOW Not Available [facility] [address] [place] [address], [address], 01/23/2025 08:28:18 01/24/2001/23/2025 POC UA blo UA NEGATI VE Not Available [facility] [address] [place], [address], 01/23/2025 08:28:18 01/24/20 25 01/23/2025 POC UA tariq UA NEGATI VE Not Available [facility] [address] [place], [address], 01/23/2025 08:28:18 10/11/20 24 10/07/2024 CT, abdom en + pelvi s, w/ contr ast No observ ation record ed. [address], [address], 10/20/2024 22:07:36 Result Notes None recorded. Problems Name Problem SNOMED Code Status Onset Date Resolution Date Notes Provider Name and Address Organization Details Recorded Time Fracture of ankle 75780148 Completed 09/20/2013 Not Available [facility] 3 02:04:28 Nervous system symptoms Completed 09/20/2013 Not Available [facility] 3 02:03:49 Cough 14238843 Completed 200809/20/2013 Not Available [facility] 3 02:01:10 Wheezing 30964388 Completed 09/20/2013 Not Available [facility] 3 02:04:09 Sprain of ankle and/or foot 391814461 Completed 09/20/2013 Not Available [facility] 3 02:04:13 Urinary tract infectio us disease 03636167 Completed 09/20/2013 Not Available [facility] 3 02:01:59 Anxiety state 201750176 Active 2008 Diamond trevizo [place] - [facility] 5 10:57:02 Influenz a 1929455 Completed 09/20/2013 Not Available [facility] 3 02:02:22 Acute pharyngi tis 388434017 Completed 09/20/2013 Not Available [facility] 3 02:01:18 Joint pain in ankle and foot Completed 09/20/2013 Not Available [facility] 3 02:01:27 Acute upper respirat ory infectio n 38331005 Completed 09/20/2013 Not Available [facility] 3 02:02:18 On examinat ion - a rash Completed 09/20/2013 Not Available [facility] 3 02:00:50 Herpes zoster 6942219 Completed 09/20/2013 Not Available [facility] 3 02:02:58 Dysuria 70685534 Completed 09/20/2013 Not Available [facility] 3 02:02:01 Urethrit is 53954161 Completed 200809/20/2013 Not Available [facility] 3 02:04:06 Acute bronchit is 28992190 Completed 09/20/2013 Not Available [facility] 3 02:01:37 History of heroin abuse 46902967777 9105 Active 2018 Betty Lujan PA-C [address] [place] [address], [phone] , [facility] 9 11:49:56 Obstruct jason sleep apnea syndrome 23733657 Active 2023 Meagan Thorpe RN BSN [facility], [facility] 4 14:48:02 Bronchie ctasis 89498450 Active 2023 per pulm note 05/05/24 Meagan Thorpe RN BSN [facility], [facility] 4 17:06:12 Chronic vascular insuffic iency of intestin e 363245058 Active 2024 chronic mesenter ic ischemia , concern for SMA see [facility] vascular note 12/21/24 Trena Hawkins LPN null, [facility] 5 12:52:20 Problem Notes None recorded. Procedures Surgical History Date Name Laterality Status Provider Name and Address Organization Details Recorded Time 1 Bhumika - Upper Endoscopy completed Patrick Bai MD [address] [place] [address], [phone], [facility] 06/25/2021 11:31:42 8 POC Urinalysis Testing completed Jaymie William [facility] 12/29/2017 13:39:52 8 [facility] 13:18:35 [address] [facility] 10/11/2015 10:53:53 3 Treatment and Advice completed Paty Ortiz Mph, LPT [address] [place], [address], [facility] 05/09/2013 13:55:04 1 Smoking cessation counseling completed Janki Caldwell MD [address] [place], [address], [facility] 04/29/2011 14:35:28 9 Nebulizer Tx completed Lavern Patel LPN [facility] 07/04/2009 12:12:40 9 Treatment and Advice completed Regine Byrd, PT [address] [place], [address], [facility] 06/27/2009 15:09:58 Imaging Results Imaging Date Name Status LastModified by Organiz ation Details LastModified Time 10/07/2024 CT, abdomen + pelvis, w/ contrast completed [facility] [address] [facility], [place], [address], 10/20/2024 22:07:36 Procedure Notes None recorded. Medical [...] lable prednisol one acetate 1 % eye drops,[facility] 06/28 completed Not Available Not Available [...] Relief 50 mcg/actua tion nasal spray,[facility] [place] 1 spray every day by intranas al route. 06/14 completed Not Available Not Available Not Available Wixela Inhub 250 mcg-50 mcg/dose powder for inhalatio n TAKE 1 PUFF BY MOUTH TWICE A DAY 10/16 completed Not Available Not Available Not Available Vitals Date Recorded Body height Oxygen saturation Oxygen saturation in Arterial blood by Pulse oximetry Heart rate Body mass index (BMI) Body weight Systolic blood pressure Diastolic blood pressure Provider Name and Address Organization Details Last Updated DateTime 4 198.12 cm 97 % 97 % 68 /min 24.2 kg/m2 21658.8 1 g 110 mm[Hg] 66 mm[Hg] Bartolo Hinojosa [facility] [place] 4 08:08:46 Date Recorded Body height Body mass index (BMI) Body weight Heart rate Oxygen saturation Oxygen saturation in Arterial blood by Pulse oximetry Systolic blood pressure Diastolic blood pressure Provider Name and Address Organization Details Last Updated DateTime 4 198.12 cm 24.5 kg/m2 23812.5 8 g 71 /min 98 % 98 % 100 mm[Hg] 62 mm[Hg] Jessica Olvera [facility] [place] 4 08:10:51 Date Recorded Body height Heart rate Systolic blood pressure Diastolic blood pressure Provider Name and Address Organization Details Last Updated DateTime 11/23/2024 198.12 cm 76 /min 135 mm[Hg] 60 mm[Hg] Kristen Herrera [facility] 11/23/2024 13:40:08 Date Recorded Body height Heart rate Body mass index (BMI) Body weight Systolic blood pressure Diastolic blood pressure Provider Name and Address Organization Details Last Updated DateTime 5 198.12 cm 76 /min 23.5 kg/m2 00485.2 5 g 130 mm[Hg] 68 mm[Hg] Kristen Herrera [facility] 5 15:12:27 Date Recorded Body height Body mass index (BMI) Body weight Oxygen saturation Oxygen saturation in Arterial blood by Pulse oximetry Heart rate Systolic blood pressure Diastolic blood pressure Provider Name and Address Organization Details Last Updated DateTime 5 198.12 cm 23.3 kg/m2 22592.6 6 g 97 % 97 % 73 /min 110 mm[Hg] 64 mm[Hg] Andres Madera [facility] [place] 5 08:20:19 Social History Question Answer Notes LastModified by Organizat ion Details LastModified Time Tobacco Smoking Status Former Smoker quit 09/10/2012 smoked 10 yrs Not Available [facility] 03/26/2011 02:08:12 Do You Have An Advance [...] 2013; Son Born Oct 2010 Lives In [place] With Mother Information not available 04/29/2011 Are [...] virus, trivalent, preservative 1 completed Not Available [facility] 11/18/2019 02:18:12 pneumococcal polysaccharide PPV23 1 completed Not Available [facility] 11/18/2019 02:14:32 Tdap 3 completed Not Available [facility] 11/18/2019 02:31:15 Influenza, split virus, trivalent, preservative 0 completed Not Available [facility] 11/18/2019 02:29:16 Novel [id number] 0 completed Not Available [facility] 11/18/2019 02:17:43 Influenza, split virus, quadrivalent, PF 6 completed Not Available [facility] 11/18/2019 02:21:07 influenza, unspecified formulation 4 completed Radha Lee [facility] 09/17/2014 16:57:42 Influenza, split virus, quadrivalent, PF 7 completed Not Available [facility] 11/18/2019 02:33:35 Influenza, split virus, quadrivalent, PF 8 completed Not Available [facility] 11/18/2019 02:33:02 Tdap 0 completed Not Available [facility] 11/18/2019 02:26:04 Tdap 2 completed Patrick Glass [facility] 01/10/2024 11:46:18 Past Encounters Encounter ID Performer Location Encounter Start Date Encounter Closed Date Diagnosis/Indication Diagnosis SNOMED-CT Code Diagnosis ICD10 Code Diagnosis Note [id number] [facility], OFFICE [address] [place] [address] 06/25/2009 14:28:05 06/26/2009 15:05:27 [id number] Physical Therapy, [facility] [address] [place] [address] 06/27/2009 14:32:53 06/28/2009 13:36:36 [id number] [facility], OFFICE [address] [place] [address] 07/04/2009 11:04:55 07/10/2009 12:25:26 [id number] Radiology , [facility] [address] [place] [address] 07/04/2009 12:24:33 07/10/2009 10:45:03 [id number] [facility], OFFICE [address] [place] [address] 08/20/2009 15:40:16 08/21/2009 15:16:46 [id number] LAB - [facility] [address] [place] [address] 6 06/25/2009 15:24:33 06/25/2009 15:24:40 [id number] Radiology , [facility] [address] [place] [address] 07/04/2009 00:00:00 08/29/2009 02:00:52 [id number] [facility], OFFICE [address] [place] [address] 09/12/2009 11:13:57 09/13/2009 14:23:03 [id number] [facility], OFFICE [address] [place] [address] 10/10/2009 14:50:57 10/10/2009 15:44:45 [id number] [facility], OFFICE [address] [facility] [place] [address] 11/06/2009 15:13:00 11/08/2009 15:42:00 [id number] FP, [facility], OFFICE [address] [place] [place] [address] 11/07/2009 10:11:35 11/08/2009 15:57:51 [id number] Radiology , [facility] [address] [facility] [place] [address] 11/07/2009 11:29:26 11/07/2009 16:30:53 [id number] , [facility], OFFICE [address] [facility] [place] [address] [place] [address] 11/11/2009 14:02:56 11/13/2009 12:25:41 [id number] , [facility], OFFICE [address] [facility] [place] [address] [place] [address] 6 11/13/2009 14:30:21 11/15/2009 09:04:06 [id number] , [facility], OFFICE [address] [facility] [address] [address] [place] [address] 6 12/04/2009 10:55:28 12/06/2009 12:21:48 [id number] , [facility], OFFICE [address] [place] [address] 12/24/2009 09:05:24 12/26/2009 15:16:46 [id number] , [facility], OFFICE [address] [facility] [place] [address] 02/05/2010 15:08:56 02/06/2010 11:59:20 [id number] , [facility], OFFICE [address] [facility] [place] [address] 07/04/2010 15:07:34 07/10/2010 09:18:46 [id number] , [facility], OFFICE [address] [place] [address] 07/08/2010 11:08:08 07/09/2010 14:56:35 [id number] , [facility], OFFICE [address] [place] [address] 10/09/2010 10:10:12 10/14/2010 08:27:15 [id number] FP, [facility], OFFICE [address] [facility] [place] [address] 11/17/2010 15:46:48 11/20/2010 09:26:01 [id number] FP, [facility], OFFICE 238 [facility] [place] [address] 6 12/09/2010 09:04:40 12/12/2010 14:59:35 [id number] , [facility], OFFICE [address] [place] [address] 12/10/2010 13:36:19 12/12/2010 12:16:31 [id number] , [facility], OFFICE [address] [place] [address] 01/08/2011 10:12:59 01/12/2011 15:00:31 [id number] , [facility], OFFICE [address] [place] [address] 04/09/2011 10:23:04 04/10/2011 11:12:44 [id number] , [facility], OFFICE [address] [facility] [place] [address] 6 04/17/2011 09:43:48 04/17/2011 11:02:21 [id number] Linda Paredes MA , [facility], OFFICE [address] [place] [address] 04/29/2011 13:53:49 05/01/2011 11:19:49 [id number] , [facility], OFFICE [address] [place] [address] 6 07/29/2011 10:40:03 07/29/2011 11:27:01 [id number] Linda Paredes MA , [facility], OFFICE [address] [place] [address] 6 06/20/2012 10:55:03 06/20/2012 11:37:19 [id number] TIMBO Yoder , [facility], OFFICE [address] [place] [address] 07/21/2012 09:12:19 07/21/2012 09:36:10 [id number] MD HAIDER Thrasher, [facility], OFFICE [address] [place] [address] 6 09/19/2012 14:44:00 09/19/2012 15:12:36 [id number] SANTHOSH Melo , [facility], OFFICE [address] [place] [address] 10/20/2012 15:12:54 10/21/2012 12:38:06 [id number] Janki Caldwell MD , [facility], OFFICE [address] [place] [address] 12/20/2012 14:28:21 12/20/2012 15:45:30 [id number] Priscilla Mendes , [facility], OFFICE [address] [place] [address] 03/17/2013 14:48:43 03/20/2013 11:12:42 [id number] Marcelo Trevino ACCOUNTS RECEIVABLE REPRESENTATIVE , [facility], OFFICE [address] [place] [address] 03/29/2013 10:34:09 03/29/2013 14:27:58 [id number] Marcelocate Trevino ACCOUNTS RECEIVABLE REPRESENTATIVE , [facility], OFFICE [address] [place] [address] 05/02/2013 15:13:46 05/03/2013 14:34:02 [id number] Paty rOtiz Mph, LPT Physical Therapy, [address] [address] 05/09/2013 12:53:07 05/09/2013 14:10:04 [id number] Meme Granados , [facility], OFFICE [address] [place] [address] 6 08/11/2013 12:12:02 08/11/2013 13:57:55 Acute pharyngitis [id number] Pharyngiti s: concern for GAS pharyngiti s [...] children at home and 2/4 centor criteria [id number] Dejah Doe NP , [facility], OFFICE [address] [place] [address] 01/19/2014 15:27:44 01/19/2014 16:18:31 Acute upper respiratory infection 40630746 Educated patient that URI is a viral [...] or failure to resolve in 2-4 weeks. [id number] [facility], OFFICE [address] [place] [address] 06/28/2014 16:13:14 07/03/2014 11:42:38 Plantar fasciitis 834750708 Discussed. Literature given with stretching exercises to start doing daily. Enc. ice, comf. footwear, rest, NSAIDs prn. Referred to [facility] for new inserts for shoes. Pt to f/u here if not improving or sx worsening and would consider PT. Pt comf. with this plan. [id number] Bia Fagan Podiatry, [facility] [address] [place] [address] 11/22/2014 09:57:12 11/22/2014 13:09:11 Plantar fasciitis 745095458 [id number] Nanda Jaime [facility], OFFICE [address] [place] [address] 6 04/01/2015 16:56:40 04/01/2015 17:31:28 Backache 803972446 low back strain, non radiating, reviewed RICE,suppo rtive care no truama no need for imaging. 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 check for hereditary issues, refer to PT, f/u 6 weeks [id number] Osiris Locke , [facility], OFFICE [address] [place] [address] 09/13/2015 16:31:58 09/19/2015 07:59:28 Acute pharyngitis 732303790 J02.9 Diarrhea 72036514 R19.7 Hematochezia 352906077 K 92.1 [id number] Victor Manuel Claudio, OD Eye Care, [facility] [address] [place] [address] 10/11/2015 10:32:30 10/11/2015 11:11:33 Astigmatism 58561897 H52.677 [id number] Alicia Bear NP , [facility], OFFICE [address] [place] [address] 11/02/2015 11:28:45 11/02/2015 11:56:36 Acute upper respiratory infection 36793492 J06.9 Laryngitis 66332249 J04. 0 [id number] Mary Wayne , [facility], OFFICE [address] [place] [address] 01/02/2016 12:13:47 01/08/2016 14:07:48 Cough 62992772 R05 bronchitis - otc cough med. rest, call if gets worse [id number] Jojo Monsalve NP , [facility], OFFICE [address] [place] [address] 09/03/2016 14:18:46 09/08/2016 10:05:26 Active or passive immunization 237852471 Z23 Contusion of scrotum 232 28679 S30.22XA Reviewed u/s report from the ER. [...] gradually resolve over the next few weeks. [id number] Dejah Doe NP , [facility], OFFICE [address] [place] [address] 03/12/2017 10:40:47 03/12/2017 11:24:22 Acute upper respiratory infection 34959180 J06.9 Educated patient that URI is a [...] or failure to resolve in 2-4 weeks. [id number] Dillon Gordon MD , [facility], OFFICE [address] [place] [address] 06/14/2017 11:43:02 06/14/2017 12:15:28 Low back strain 010782977 S39.012A [id number] Kristen Santos RN BSN , [facility], OFFICE [address] [place] [address] 09/16/2017 09:36:54 09/16/2017 10:03:15 Active or passive immunization 830065615 Z23 [id number] Victor Manuel Claudio OD Eye Care, [facility] [address] [place] [address] 6 12/03/2017 12:59:36 12/03/2017 13:48:06 Myopia 17143431 H52.13 Regular astigmatism 6890 5002 H52.463 [id number] Triny Catherine, [employer] [facility], OFFICE [address] [place] [address] 12/29/2017 13:33:22 12/29/2017 14:02:11 Urinary tract infectious disease 97822133 N39.0 pt notes frequency, reassuring UA, will await culture results rather that treat.r.ou t g/c [id number] Janki Caldwell MD , [facility], OFFICE [address] [place] [address] 05/30/2018 14:03:02 05/30/2018 14:56:09 Adult health examination 980185255 Z00.00 see Risk Assessment and Lifestyle Change Counseling section above; Td due 2022 Counseling 319270944 Z71 .9 Depression screening 171 568594 Z13.89 depression screening tool administer ed, entered into emr, scored and discussed, time greater than 7.5 minutes History of heroin abuse 2469160446 40475 F11.11 clean since 2007; never any issues with alcohol [id number] ROSLYN Delvalle , [facility], [address] [place] [address] 08/17/2018 14:01:35 08/17/2018 14:25:42 Active or passive immunization 250778505 Z23 Pain in testicle 9263367 9 N50.819 hx of hydrocele, not visible on exam todaywill ultrasound plan pending results. Sprain of ankle 67208190 S93.401A old injuryrevi ewed RICEcompre ssion stockingss trengtheni ng exercises [id number] Gideon Reece MD , [facility], [address]ICE [address] [place] [address] 10/14/2018 14:48:14 10/14/2018 15:07:46 Hemorrhoids 14261463 K64.9 [id number] Araseli Anthony PA-C , [facility], OFFICE [address] [place] [address] 02/06/2019 10:44:59 02/06/2019 11:26:15 Hemoptysis 17432742 R04.2 Acute bronchitis 5472189 2 J20.9 H&P consistent with acute bronchitis [...] with high fever over 100.4 degrees F. [id number] Betty Lujan PA-C , [facility], OFFICE [address] [place] [address] 06/28/2019 11:42:24 06/28/2019 13:58:26 Viral conjunctivitis 25004479 B30.9 - conjunctiv itis is very contagious - wash hands frequently - avoid touching eyes with hands- wipe any discharge with a tissue and then wash hands- return to office if not improving in 1-2 days, or if you develop pain or swelling of the eyes- no antibiotic s indicated at this time Epidermoid cyst of skin 428208579 L72.0 - without infection currently- call office if worsening, and could consider referral for removal [id number] Janki Caldwell MD , [facility], OFFICE [address] [place] [address] 01/02/2020 14:00:07 01/02/2020 17:54:11 Abnormal sexual function 61025856 R37 lab check, see how he is. Skin lesion 20463808 L98 .9 use steroid creams x2 wks if no better, follow up in 2 wks for biopsy - can be a 15 minute visit not in procedure room [id number] Mack Koch MD , [facility], OFFICE [address] [place] [address] 03/07/2020 12:04:58 03/08/2020 09:51:29 Low back strain 332841811 S39.012A Reviewed OK to use heat or ice, then try gentle stretching with small movements. Reviewed use and precaution s with ibuprofen and cyclobenza tye. Offered PT; you will let us know if you are interested . Contact us if not improving [id number] Alicia Gautam MD , [facility], [address]ICE [address] [place] [address] 10/04/2020 09:48:14 10/07/2020 09:11:42 Gastritis 5460928 K29.70 Take medication x 2 weeks. If you do not see improvemen t, let us know. If better, OK to slowly wean off of the medication [id number] Diamond Nelson NP , [facility], [address] [place] [address] 04/07/2021 09:39:02 04/07/2021 10:18:31 Gastroesophageal reflux disease 332120801 K21.9 New onset in last 6-8 months; Had trial of omeprazole for ?gastric ulcer in Oct 2020, initially improved but worsened when he tapered off. Will restart omeprazole 20mg daily Refer to [facility] - phone number given & pt will call to schedule appt Reviewed red flags & when to f/u [id number] Diamond Lea RN [facility] [address] [place] [address] 06/25/2021 09:47:47 06/25/2021 13:51:03 [id number] Dasia Subramanian PA-C , [facility], [address] [place] [address] 01/20/2023 13:54:46 01/21/2023 11:49:29 Cough 50694529 R05.9 Dry cough for 2-3 weeks.May be postviral. No pulmonary history and quit smoking 10 years ago.Clear lung exam.Advis ed otc mucinex and if persists for another 1 week or any acute worsening, please RTO. [id number] Jakni Caldwell MD , [facility], [address]ICE [address] [place] [address] 01/10/2024 11:10:13 01/10/2024 12:07:12 Adult health examination 071607458 Z00.00 see Risk Assessment and Lifestyle Change Counseling section above; Td due 2031 Depression screening 171 801735 Z13.31 depression screening tool administer ed Screening for alcohol abuse 660904658 Z13.39 Alcohol use screening tool administer ed Unintentio nal weight loss 895603245 R63.4 down from 192-185 Cough 55014819 R05.9 see above; dry tickle, can have spasms. BRB on Wednesday [id number] Janki Caldwell MD , [facility], [address] [place] [address] 01/24/2024 15:02:29 01/27/2024 13:53:04 Vaccination delayed 0282029365 30450 Z28.39 flu Insomnia 404649202 G47.0 0 not sleeping well. not cler if sleep apnea or another sleep issue; refer Exposure t o sexually transmissible disorder 848121631 Z20.2 check for weight loss Stress 67309875 Z73.3 discussed anxiety, therapy or meds, he prefers to defer for now. Unintentio nal weight loss 354690055 R63.4 down from 192-185; concerned for low testostero ne if we find nothing I will refer to Endo for assessment [id number] Janki Caldwell MD [facility], OFFICE [address] [place] [address] 05/24/2024 09:28:49 05/25/2024 09:59:08 Dyspnea on exertion 11705338 R06.09 seeing pulmonary; bronchosco py scheduled for June 15 [id number] [facility], OFFICE [address] [place] [address] 08/31/2024 07:57:38 09/02/2024 12:02:36 Influenza vaccination declined 074203644 Z28.21 Diarrhea 53149975 R19.7 ddx: IBS, IBD, colitis, CRCabdomen mildly [...] return precaution s Altered david wel function 43594082 R19.4 see abovefamil y hx of colon CA - paternal auntgiven sudden change in bowel habits, advised colonoscop yGI referral also placeddisc ussed return precaution s [id number] DIANNA Cedillo , [facility], [address] [place] [address] 10/16/2024 07:50:56 10/17/2024 11:34:03 Vaccination not done 4114581487 9108 Z28.29 Patient declined the flu vaccine at this time. 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 Danette Samaniego at [facility]ascular Bronchiectasis 36778304 J47.9 improved; no longer coughing up tissue able to exericse again [id number] Rita Kelly MD , [facility], [address] [place] [address] 11/23/2024 13:23:22 11/24/2024 12:14:39 Dysuria 30822499 R30.0 Patient with urinary symptoms.N o symptoms of pyelonephr itis.Will send urine for culture.. rule out STDspt opts to empiricall y start treatment for UTIPatient instructed to follow up if not better or with new symptoms. [id number] Rita Kelly MD , [facility], [address] [place] [address] 12/28/2024 14:55:37 12/29/2024 11:16:54 Dysuria 65538937 R30.0 will send culture and STD screenoffe red HIV in 3 months, too soon to test todaysafe sex encouraged will notify pt of results [id number] Gideon Reece MD , [facility], [address] [place] [address] 01/23/2025 08:03:46 01/23/2025 13:50:22 Influenza vaccination declined 416582281 Z28.21 Dysuria 13567343 R30.0 Health Concerns Section Related Observation LastModified by Organization Detai ls LastModified Time None Recorded Concern Status LastModified by Organization Details LastModified Time None Recorded Advance Directives Directive N: form given Payers Encounter Date Sequence Insurance Name Policy Number Policy Mcgee Covered Member ID Mcgee Member ID Guarantor Name 08/31/2024 1 [facility] ([facility] [id number] Stef R Jourdan [id number] Stef R Jourdan 10/16/2024 1 [facility] ([facility] [id number] Stef R Jourdan [id number] Stef R Jourdan 11/23/2024 1 [facility] ([facility] [id number] Stef R Jourdan [id number] Stef R Jourdan 12/28/2024 1 [facility] ([facility] [id number] Stef R Jourdan [id number] Stef R Jourdan 01/23/2025 1 [facility] ([facility] [id number] Stef R Jourdan [id number] Stef R Jourdan Notes Date Note Type Note Provider Name and Address Organization Details Recorded Time 08/31/2024 text/html [place] note: pt presents for ? IBS x [...] in stool,Denies changes in diet SANTHOSH MEDINA [address] [place] [address], [phone], [facility] 08/31/2024 08:38:00 10/16/2024 text/html Discuss SMA syndrome./ review CT of abd and pelvisno proxy on file Janki Caldwell MD [address] [place] [address], [phone], [facility] 10/16/2024 13:46:11 11/23/2024 text/html pt presents with few days dysuria, frequency. No discharge. No hx UTI. no fever No change in chronic back pain. Urine cloudy at times Riat Kelly MD [address] [place] [address], [phone], [facility] 11/23/2024 13:47:49 12/28/2024 text/html [place] had sex with a stranger one week ago. Condom broke. Now with testicles burning, penis burning and burning with urination. no lesions, no rashes, no discharge. Rita Kelly MD [address] [place] [address], [phone], [facility] 12/28/2024 15:23:21 01/23/2025 text/html Patient is here today for discomfort when urinating, no discharge, was having pain in his testicles. has ? of a spot on the penis- states pain gets more uncomfortable as the day goes onHas red spots on the legs Gideon Reece MD [address] [place] [address], [phone], [facility] 01/23/2025 08:49:49
== END 2025-01-25 10:20 | disposition home or self-care (01) ==
LOC: HO.HVS 09:53
PROVIDERS: PCP Nurse Practitioner Family; Visit Provider Surgery Vascular Surgery
DX: K55.1 Chronic vascular disorders of intestine (principal)
CPT/HCPCS: 99214

== ENCOUNTER → 2025-01-25 09:52 | Outpatient (BNVA) | payer OTHER, SELFPAY | PROVIDERS: PCP Nurse Practitioner Family; Visit Provider Surgery Vascular Surgery | DX: K55.1 Chronic vascular disorders of intestine (principal) | CPT/HCPCS: 99212 ==